=== PATIENT | female | born 1940 | race Caucasian/White ===

== ENCOUNTER → 2016-05-28 | Day surgery (SDC) | payer MEDICARE, BC ==
[~2016-05-28] MED LIST: AMBI10TA PO; ASCO500T PO; ASPI81TA11 PO; CHOL100025 CHEW; ESTR0.5T PO; ESTR0.5T8; ESTR42.5V VAGINAL; HYDR2.5O; HYZA50TA2 PO; IOHEXOL 180 MG/ML 20 ML VIAL (for RAD DIAG) EPIDURAL ONE; LIDOCAINE HCL 1% 30 ML VIAL NB ONE; MONT10TA4 PO; MULT-120 PO; OXYC1TAB36 PO; PRED1SUS EACH EYE; PROPOFOL 200 MG/20 ML AMP IV ONE; TRAV0.00 EACH EYE; TRIAMCINOLONE ACETONIDE 40 MG/ML VIAL NB ONE; TUMERIC PO; VENL75TA PO; VESI10TA PO; WOMETAB5 PO; ZOLP10TA3
--- NOTE | 2016-05-28 10:14 | M6 ---
cc: JIMBO NEELY M.D. DATE: 05/28/2016 DATE OF : 1940 PROCEDURE Fluoroscopic guided bilateral L5 selective nerve root injection. PROCEDURE NOTE History and physical was completed and signed. Consent was signed. Procedure site was marked. Medications were listed and reconciled. Pain score was recorded. Allergies were noted. Timeout was taken. Fluoroscopy time was recorded where applicable. Sedation was administered or directed by Dr. Neely. The patient was given oxygen. The patient was monitored by a registered nurse. Total procedure time was greater than 15 minutes. An IV was started, blood pressure cuff, pulse oximeter and EKG were applied. The patient was placed in the prone position on a Ezra table, sedated with small amounts of propofol titrated to effect. Vital signs were monitored and remained stable throughout the procedure. The lumbar area was prepped with alcohol and 10% Betadine solution, draped with sterile drapes. Fluoroscopy was used in both the AP and lateral projection to clearly visualize the L5-S1 neural foramen. Then 3-1/2 inch, 22-gauge Chiba needles were advanced into the dorsal aspect of each foramen. There was negative aspiration for blood or any other type of fluid. There was no washout to injection of Omnipaque dye. At each location the patient was given 3 mL of 1% Xylocaine, 3 mL of Omnipaque and 40 mg of Kenalog. Following the procedure the patient was taken to the recovery room with stable vital signs, neurologically intact. She will be evaluated immediately and with follow-up to determine if she has a subjective decrease in her usual pain and a corresponding objective increase in her functional capabilities. W. Cole Neely MD WRMiguelito/SUSAN /9:50 AM /10:10 AM
== END | disposition home or self-care (01) ==
LOC: PHSDC 07:54
PROVIDERS: ATTEND Pain Medicine Interventional Pain Medicine
DX: M54.5 Low back pain (principal); M79.605 Pain in left leg; M79.604 Pain in right leg
CPT/HCPCS: 64483; 99152; J3301; Q9965

== ENCOUNTER → 2016-08-15 | Day surgery (SDC) | payer MEDICARE, BC ==
[~2016-08-15] MED LIST changes: -ASCO500T PO; -ESTR42.5V VAGINAL; -LIDOCAINE HCL 1% 30 ML VIAL NB ONE; +LIDOCAINE HCL PF 2% VIAL ONE; -OXYC1TAB36 PO; -TUMERIC PO; -ZOLP10TA3
--- NOTE | 2016-08-19 22:45 | M6 ---
cc: STEVE BHATT,ANDRÉS ARROYO M.D., M.D. DATE 08/15/2016 1940 PROCEDURE Right S2 selective nerve root block PREPROCEDURE NOTE On 08/05/2014, I received a phone call from Dr. Steve Bhatt requesting a right S2 selective nerve root block on Ms. Wu in an attempt to identify her pain generator. History and physical was completed and signed. Consent was signed. Procedure site was marked. Medications were listed and reconciled. Pain score was recorded. Allergies were noted. Time out was taken. Fluoroscopy time was recorded where applicable. Sedation was administered or directed by Dr. Neely. The patient was given oxygen. The patient was monitored by a registered nurse. Total procedure time was greater than 15 minutes. IV was started, blood pressure cuff, pulse oximeter and EKG were applied. The patient was placed in the prone position on a Ezra table sedated with small amounts of propofol titrated to effect. Vital signs were monitored and remained stable throughout the procedure. Fluoroscopy was used to visualize the right S2 foramen; then a 3-1/2-inch 22-gauge Chiba needle was advanced under fluoroscopic guidance into the right S2 neural foramen. One mL of Omnipaque was injected and seen to outline the nerve root very clearly. Then the patient was given 1 mL of 2% Xylocaine and 20 mg of Kenalog directly on that nerve root. Following this, the patient was taken to the recovery room with stable vital signs. We will evaluate the patient immediately today and we will follow up with her in 24 hours. W. MD AVRIL Justice/ /8:50 AM /10:41 PM
== END | disposition home or self-care (01) ==
LOC: PHSDC 07:25
PROVIDERS: ATTEND Pain Medicine Interventional Pain Medicine
DX: M79.604 Pain in right leg (principal)
CPT/HCPCS: 64483; 99152; J3301; Q9965

== ENCOUNTER → 2016-09-25 | Day surgery (SDC) | payer MEDICARE, BC ==
[~2016-09-25] MED LIST changes: -ESTR0.5T8; -HYDR2.5O; +LIDOCAINE HCL PF 2% VIAL NERV BLOCK ONE; -LIDOCAINE HCL PF 2% VIAL ONE; -TRIAMCINOLONE ACETONIDE 40 MG/ML VIAL NB ONE; +TRIAMCINOLONE ACETONIDE 40 MG/ML VIAL NERV BLOCK ONE
--- NOTE | 2016-09-25 22:45 | M6 ---
cc: STEVE AGUILAR DEANNA K. MD MAYFIELD, WILLIAM R. M.D. Corrected Copy: 09/26/16 DATE: 09/25/2016 : 1940 PROCEDURE Fluoroscopically guided right S2 selective nerve root injection PRE-PROCEDURE NOTE On 08/15/2016, I performed a fluoroscopically guided right S2 selective nerve root injection of local anesthetic and steroid on Ms. Wu and she comes today to report that she had excellent relief of her symptoms and she still is having only mild pain so we are simply repeating the procedure today hoping for prolonged relief. History and physical was completed and signed. Consent was signed. Procedure site was marked. Medications were listed and reconciled. Pain score was recorded. Allergies were noted. Time out was taken. Fluoroscopy time was recorded where applicable. Sedation was administered or directed by Dr. Neely. The patient was given oxygen. The patient was monitored by a registered nurse. Total procedure time was greater than 15 minutes. IV was started, blood pressure cuff, pulse oximeter and EKG were applied. The patient was placed in the prone position on a Ezra table sedated with small amounts of propofol titrated to effect. Vital signs were monitored and remained stable throughout the procedure. he sacral area was prepped with alcohol and 10% Betadine solution, draped with sterile drapes. Fluoroscopy was used to visualize the right S2 neural foramen. Then a 3-1/2-inch 22-gauge Chiba needle was advanced into the foramen under fluoroscopic guidance. There was negative aspiration for blood or any other type of fluid. Omnipaque dye was injected and seen to outline the nerve root. The patient was given 1-1/2 mL of 2% Xylocaine 40 mg of Kenalog directly on the nerve. Following this, the patient was taken to the recovery room with stable vital signs. W. MD AVRIL Justice/ /9:34 AM /8:42 AM
== END | disposition home or self-care (01) ==
LOC: PHSDC 07:57
PROVIDERS: ATTEND Pain Medicine Interventional Pain Medicine
DX: M79.661 Pain in right lower leg (principal)
CPT/HCPCS: 64483; 99152; J3301; Q9965

== ENCOUNTER → 2016-10-22 | Day surgery (SDC) | payer MEDICARE, BC ==
[~2016-10-22] MED LIST changes: -IOHEXOL 180 MG/ML 20 ML VIAL (for RAD DIAG) EPIDURAL ONE; +LIDOCAINE HCL 1% 30 ML VIAL NERV BLOCK ONE; -LIDOCAINE HCL PF 2% VIAL NERV BLOCK ONE; -MULT-120 PO
--- NOTE | 2016-10-22 12:28 | M6 ---
cc: JIMBO NEELY M.D. DATE 10/22/2016 DATE OF 1940 PROCEDURE Fluoroscopically guided right S2 transforaminal epidural steroid injection. History and physical was completed and signed. Consent was signed. Procedure site was marked. Medications were listed and reconciled. Pain score was recorded. Allergies were noted. Time out was taken. Fluoroscopy time was recorded where applicable. Sedation was administered or directed by Dr. Neely. The patient was given oxygen. The patient was monitored by a registered nurse. Total procedure time was greater than 15 minutes. PROCEDURE NOTE IV was started. Blood pressure cuff, pulse oximeter and EKG were applied. The patient was placed in the prone position on a Ezra table, sedated with small amounts of propofol titrated to effect. Vital signs were monitored and remained stable throughout the procedure. The lumbar and sacral area was prepped with alcohol and 10% Betadine solution and draped with sterile drapes. Fluoroscopy was used to visualize the right S2 neural foramen. A 3-1/2-inch, 22-gauge Chiba needle was advanced into the foramen under fluoroscopic guidance. There was negative aspiration for blood or any other type of fluid and the patient was given 4 mL of 1% Xylocaine, 3 mL of Omnipaque and 40 mg of Kenalog. Following this the patient was taken to the recovery room with stable vital signs, neurologically intact. W. MD AVRIL Justice/RYANNE /10:21 AM /12:27 PM
== END | disposition home or self-care (01) ==
LOC: PHSDC 09:17
PROVIDERS: ATTEND Pain Medicine Interventional Pain Medicine
DX: M79.604 Pain in right leg (principal); I10 Essential (primary) hypertension; I34.1 Nonrheumatic mitral (valve) prolapse; Z88.5 Allergy status to narcotic agent
CPT/HCPCS: 64483; 99152; J3301

== ENCOUNTER → 2016-10-29 | Day surgery (SDC) | payer MEDICARE, BC ==
[~2016-10-29] MED LIST changes: +ACETAMINOPHEN 1000 MG/100 ML VIAL IV ONE; +ACETAMINOPHEN/HYDROcodone 325 MG/5 MG TAB ONE; +BUPIVACAINE/EPINEPHRINE 0.5% PF 30 ML VIAL ONE; -ESTR0.5T PO; +ISOSULFAN BLUE 50 MG/5 ML VIAL SQ ONE; +LACTATED RINGER'S 1000 ML INJ 1,000 ML ONE; -LIDOCAINE HCL 1% 30 ML VIAL NERV BLOCK ONE; +LIDOCAINE HCL 1% PF 30 ML VIAL ONE; +MEPERIDINE HCL 25 MG/ML VIAL ONE; +MEPERIDINE HCL 50 MG/ML VIAL ONE; +MIDAZOLAM HCL 2 MG/2 ML VIAL ONE; +ONDANSETRON HCL 4 MG/2 ML VIAL IV PUSH ONE; -TRIAMCINOLONE ACETONIDE 40 MG/ML VIAL NERV BLOCK ONE; +VANCOMYCIN HCL 1000 MG VIAL ONE; +ceFAZolin INJ 1,000 MG VIAL ONE
--- NOTE | 2016-11-01 21:58 | MP ---
cc: ARLEEN TORRES MD, MICHAEL A. MD DATE OF SURGERY 10/29/16 PROCEDURE 1. Excision soft tissue abdominal masses x3 ((2 x 4, 3 x 3 and 7 x 8 cm). 2. Excision right axillary sentinel lymph node x1. 3. Right breast needle localized lumpectomy. PREOPERATIVE DIAGNOSIS 1. Soft tissue abdominal masses x3. 2. Invasive ductal carcinoma right breast. SURGEON Alyssa Garcia MD FIRE TRUCK DRIVER Kush Cason, MACK PROCEDURE IN DETAIL The patient was taken to the Department of Nuclear Medicine where she underwent injection of the breast with technetium 99 sulfur colloid. She also underwent needle localized procedure marking the area in question. She then returned to the Department of Nuclear Medicine where sentinel lymph node mapping was completed with lymphoscintigraphy. She then came to the operating room after having the areas on the abdomen marked by the undersigned and confirmed by the patient. She was placed on the operating table in the supine position. She underwent laryngeal mask anesthesia. The abdomen, right breast and axilla were all prepped and draped in the field. Time-out was taken confirming the correct patient, site and procedure to be performed. The DELINQUENCY COUNSELOR's presence was required for the entirety of the procedure and she was present from the beginning to the end. The DELINQUENCY COUNSELOR's presence was required for retraction, visualization and resection of important structures. Attention was turned to the abdominal masses first as these were benign. Three separate incisions were made in the left upper abdomen, left mid abdomen and right upper abdomen. Transverse incisions were made directly over the masses. The left upper abdomen was addressed first and a 2 x 4 cm lesion was removed. The mid abdomen then had a 3 x 3 cm lesion excised. This was accomplished with a combination of electrocautery and sharp dissection. The right upper lesion was a recurrent soft tissue mass and this was excised with a 7 x 8 cm mass completely excised. All three sites were reexamined and made hemostatic with electrocautery. All three sites were closed with interrupted 3-0 Vicryl suture. The right upper abdominal wound was closed in the skin with 5-0 PDS in a running subcuticular fashion to prevent bleeding. These were cleaned and Steri-Strips were applied. These were toweled off. Attention was then turned to the right axilla. An incision was made in the axillary fold. Dissection was carried down with the navigator probe to the site in the axilla where a single lymph node was excised. This was passed off the table. The axilla was reexamined and no further activity of above background was noted. Careful sweeping of the axilla revealed no evidence of clinically suspicious nodes by palpation. Attention was then turned to the right breast where a circumareolar incision was made midway between the needle insertion site and the nipple-areolar complex from the 1 o'clock to the 4 o'clock position in the breast. Dissection was carried out medially to the needle which was cut at the skin and brought into the wound. A very generous lumpectomy specimen was then obtained all the way down to the muscle wall. A generous lumpectomy was made as the patient had concerning findings on MRI with what was felt to be considerable disease. This was oriented with silk sutures and passed off the table. The specimen mammogram demonstrated the calcifications in question to be contained within the specimen. However, there were some calcifications tracking medially to the edge of the specimen margin. Given the patient's MRI findings concerning for fairly extensive disease in the breast extending deeply and superficially, an additional medial margin was taken that was closer to the skin and where the needle insertion site was located. This area was marked with a silk suture and passed off the table. At this point, absolute hemostasis was achieved in the lumpectomy cavity. When this had been completed, both the lumpectomy and axillary lymph node sites were closed with interrupted 3-0 Vicryl suture and 5-0 PDS in a running subcuticular fashion with the breast wound closed last. The remaining local anesthetic was injected into the lumpectomy site as well as some saline to provide a cosmetically acceptable result. These wounds were dressed with Steri-Strips. The patient was extubated and taken back to the recovery room in stable condition. She tolerated the procedure well. MD REJI Godoy/ /1:25 PM /9:42 PM [facility]
== END | disposition home or self-care (01) ==
LOC: ESDC 06:57
PROVIDERS: ATTEND Surgery Trauma Surgery
DX: D05.11 Intraductal carcinoma in situ of right breast (principal); D17.1 Benign lipomatous neoplasm of skin and subcutaneous tissue of trunk
CPT/HCPCS: 00400; 01610; 19125; 22900; 22901; 38525; 88304; 88307; J0131; J0690; J2175; J2250; J2405; J3010; J3370; J7120; 88305; Q9968

== ENCOUNTER → 2016-11-05 | Day surgery (SDC) | payer MEDICARE, BC ==
[~2016-11-05] MED LIST changes: -ACETAMINOPHEN 1000 MG/100 ML VIAL IV ONE; -ACETAMINOPHEN/HYDROcodone 325 MG/5 MG TAB ONE; -BUPIVACAINE/EPINEPHRINE 0.5% PF 30 ML VIAL ONE; -ISOSULFAN BLUE 50 MG/5 ML VIAL SQ ONE; +KETOROLAC TROMETHAMINE 30 MG/ML (IVP) VIAL IV PUSH ONE; -LACTATED RINGER'S 1000 ML INJ 1,000 ML ONE; +LIDOCAINE HCL 1% 30 ML VIAL INFIL ONE; -LIDOCAINE HCL 1% PF 30 ML VIAL ONE; +MEPERIDINE HCL 25 MG/ML VIAL IV ONE; -MEPERIDINE HCL 25 MG/ML VIAL ONE; -MEPERIDINE HCL 50 MG/ML VIAL ONE; -MIDAZOLAM HCL 2 MG/2 ML VIAL ONE; -ONDANSETRON HCL 4 MG/2 ML VIAL IV PUSH ONE; +SODIUM CHLORIDE 0.9% 10 ML VIAL ONE; -VANCOMYCIN HCL 1000 MG VIAL ONE; -ceFAZolin INJ 1,000 MG VIAL ONE; +methylPREDNISolone ACETATE 80 MG/ML VIAL ONE
--- NOTE | 2016-11-05 11:06 | M6 ---
cc: JIMBO NEELY M.D. DATE: 11/05/2016 1940 PROCEDURE Fluoroscopically guided L5-S1 translaminar epidural steroid injection. History and physical was completed and signed. Consent was signed. Procedure site was marked. Medications were listed and reconciled. Pain score was recorded. Allergies were noted. Time out was taken. Fluoroscopy time was recorded where applicable. Sedation was administered or directed by Dr. Neely. The patient was given oxygen. The patient was monitored by a registered nurse. Total procedure time was greater than 15 minutes. IV was started, blood pressure cuff, pulse oximeter and EKG were applied. The patient was placed in the prone position on a Ezra table, sedated with small amounts of propofol titrated to effect. Vital signs were monitored and remained stable throughout the procedure. The lumbar area was prepped with alcohol and 10% Betadine solution and draped with sterile drapes. Fluoroscopy was used to visualize the L5-S1 interlaminar space. The skin was infiltrated with 1% Xylocaine using a 27 gauge needle then a 3-1/2-inch 18-gauge Warren needle was advanced using fluoroscopic guidance and the [id number] technique into the epidural space at L5-S1 slightly to the right of the midline. There was negative aspiration for blood or any other type of fluid and the patient was given 10 mL of 0.5% lidocaine 80 mg of Depo-Medrol. Following the procedure the patient was taken to the recovery room with stable vital signs, neurologically intact. WMD AVRIL Caputo/KALPANA /10:31 AM /11:05 AM
== END | disposition home or self-care (01) ==
LOC: PHSDC 08:41
PROVIDERS: ATTEND Pain Medicine Interventional Pain Medicine
DX: M54.5 Low back pain (principal)
CPT/HCPCS: 62323; 99152; J1040; J1885; J2175

== ENCOUNTER → 2016-11-19 | Day surgery (SDC) | payer MEDICARE, BC ==
[~2016-11-19] MED LIST changes: +IOHEXOL 180 MG/ML 20 ML VIAL (for RAD DIAG) EPIDURAL ONE; -KETOROLAC TROMETHAMINE 30 MG/ML (IVP) VIAL IV PUSH ONE; -LIDOCAINE HCL 1% 30 ML VIAL INFIL ONE; +LIDOCAINE HCL 1% PF 30 ML VIAL INFIL ONE; -MEPERIDINE HCL 25 MG/ML VIAL IV ONE; +TRIAMCINOLONE ACETONIDE 40 MG/ML VIAL NERV BLOCK ONE; +methylPREDNISolone ACETATE 40 MG/ML VIAL IM ONE; -methylPREDNISolone ACETATE 80 MG/ML VIAL ONE
--- NOTE | 2016-11-21 21:50 | M6 ---
cc: JIMBO NEELY M.D. DATE 11/19/2016 DATE OF 1940 PROCEDURE Fluoroscopically guided injection right piriformis/sciatic nerve. History and physical was completed and signed. Consent was signed. Procedure site was marked. Medications were listed and reconciled. Pain score was recorded. Allergies were noted. Time out was taken. Fluoroscopy time was recorded where applicable. Sedation was administered or directed by Dr. Neely. The patient was given oxygen. The patient was monitored by a registered nurse. Total procedure time was greater than 15 minutes. IV was started, blood pressure cuff, pulse oximeter and EKG were applied. The patient was placed in the prone position on a Ezra table sedated with small amounts of propofol titrated to effect. Vital signs were monitored and remained stable throughout the procedure. The right hip area was prepped with alcohol and 10% Betadine solution and draped with sterile drapes. Fluoroscopy was used to visualize the right acetabulum. Then a 3 and a 1/2-inch 22-gauge spinal needle was advanced down to the dorsal cephalad one third of the acetabulum in the anatomical location of the piriformis muscle and sciatic nerve. Then a small amount of Omnipaque dye was injected and seen to spread laterally and medially in the piriformis muscle and the patient was given 10 mL of 0.5% Xylocaine, 40 milligrams of Depo-Medrol, 40 milligrams of Kenalog. Following the procedure the patient was taken to the recovery room with stable vital signs, neurologically intact. She will be evaluated immediately and with followup to determine if she has a subjective decrease in her usual pain and a corresponding objective increase in her functional capabilities. W. Cole Neely MD WRM/EO /9:21 AM /9:49 PM
== END | disposition home or self-care (01) ==
LOC: PHSDC 07:53
PROVIDERS: ATTEND Pain Medicine Interventional Pain Medicine
DX: M79.661 Pain in right lower leg (principal)
CPT/HCPCS: 64445; 99152; J1030; J3301; Q9965; 77003

== ENCOUNTER 2017-02-26 14:43 | Inpatient (IN) | payer MEDICARE, BC ==
[~2017-02-26] VITALS: Ht 162.6 cm; Wt 80.0 kg
[~2017-02-26 14:43] MED LIST changes: -IOHEXOL 180 MG/ML 20 ML VIAL (for RAD DIAG) EPIDURAL ONE; -LIDOCAINE HCL 1% PF 30 ML VIAL INFIL ONE; -PROPOFOL 200 MG/20 ML AMP IV ONE; -SODIUM CHLORIDE 0.9% 10 ML VIAL ONE; -TRIAMCINOLONE ACETONIDE 40 MG/ML VIAL NERV BLOCK ONE; -methylPREDNISolone ACETATE 40 MG/ML VIAL IM ONE
[2017-02-26] MEDS ORDERED: IOHEXOL 350 MG/ML 10 ML VIAL (for RAD DIAG) IVCONTRAST ONE (14:44)
[2017-02-26 14:46] VITALS: BP 142/65; PULSE 115; RESP 22; TEMP 98.1; O2SAT 93
[2017-02-26 15:34] LABS: HEMATOCRIT 42.4 % (35.0-46.0); MEAN CELL VOLUME 93.3 FL (80.0-100.0); MEAN CORPUSCULAR HEMOGLOBIN 32.2 PG (27.0-34.0); MEAN CORPUSCULAR HGB CONC 34.6 % (32.0-36.0); PLATELET COUNT 194 TH/MM3 (150-450); RED BLOOD COUNT 4.54 MIL/MM3 (4.00-5.30); WHITE BLOOD COUNT 5.5 TH/MM3 (4.0-11.0)
--- NOTE | 2017-02-26 15:35 | PD ---
HPI Chief Complaint: Respiratory Symptoms Time Seen by Provider: 15:34 Travel History International Travel<30 days: No Contact w/Intl Traveler<30days: No Traveled to known affect area: No History of Present Illness HPI 76-year-old female came to the emergency room with history of left-sided pleuritic chest pain that started 4 hours ago. Patient has history of breast cancer in the past and melanoma. She is on oral chemotherapy for her breast cancer. She recently had a travel of 3 and half hour one-way and then 3 and half hour back from [place]. She has been complaining of left ankle swelling although her oncologist did an MRI which was negative. She says she has been short of breath since the pain started and taking a deep breath is extremely painful. No radiation of the pain. Patient has never had this kind of pain in the past. No history of PE or DVT in the past. No history of coronary artery disease in the past. It is not a smoker. She was slightly tachycardic and hypoxic in the room as I was watching the monitor. [facility] Past Medical History Narrative Medical List of her past medical, surgical, social and family history is reviewed from the nursing note. Arthritis: Yes Asthma: No Blood Disorders: No Anxiety: Yes Depression: No Heart Rhythm Problems: No Cancer: Yes (SKIN) Cardiovascular Problems: Yes (MITRAL VALVE PROLAPSE) High Cholesterol: Yes Chemotherapy: No Chest Pain: No Congestive Heart Failure: No COPD: No Cerebrovascular Accident: No Diabetes: No Endocrine: No Gastrointestinal Disorders: Yes (DIVERTICULITIS) GERD: No Genitourinary: No Hepatitis: No Hiatal Hernia: No Hypertension: Yes Immune Disorder: No Implanted Vascular Access Dvce: Yes Kidney Stones: No Musculoskeletal: Yes (HX OF BACK/NECK PROBLEMS, TITANIUM PLATE IN NECK. FUSED LUMBAR SPINE) Neurologic: Yes (HX OF BELLS PALSY ) Psychiatric: Yes (ANXIETY) Reproductive: No Respiratory: Yes (HX PNEUMONIA APR 2014) Migraines: No Radiation Therapy: No Renal Failure: No Seizures: No Sleep Apnea: Yes (DOESN'T USE CPAP) Thyroid Disease: No Ulcer: No Past Surgical History Abdominal Surgery: Yes (TUMMY TUCK) AICD: No Arteriovenous Shunt: No Body Medical Devices: TITANIUM PLATE AND SCREWS IN NECK, L BREAST MARKER Ear Surgery: No Endocrine Surgery: No Eye Surgery: Yes (CATARACT BILATERAL, INFLAMMATION IN SYDNI EYES) Genitourinary Surgery: Yes (BLADDER SUSP.) Gynecologic Surgery: Yes (D&C) Insulin Pump: No Joint Replacement: No Neurologic Surgery: Yes (ANT. CERVICAL FUSION 2009, LUMBAR FUSION) Oral Surgery: No Pacemaker: No Thoracic Surgery: Yes (L BREAST LUMPECTOMY (BENIGN)) Social History Alcohol Use: Yes (WINE DAILY) Tobacco Use: No Substance Use: No Allergies-Medications (Allergen,Severity, Reaction): Coded Allergies: adhesive (Unverified Allergy, Severe, SKIN BREAK, 02/26/17) levofloxacin (Unverified Allergy, Severe, Itching, 02/26/17) morphine (Unverified Allergy, Severe, Nausea/Vomiting, 02/26/17) codeine (Unverified Adverse Reaction, Severe, NAUSEA, 02/26/17) Comments List of her allergies reviewed from the nursing note. Reported Meds & Prescriptions Reported Meds & Active Scripts Active Reported Systane Opth Drops (Polyethylene Glycol-Propylene Glycol Opth Drp) 0.4-0.3% Soln 1-2 Drop EACH EYE PRN PRN Arimidex (Anastrozole) 1 Mg Tab 1 Mg PO DAILY Myrbetriq (Mirabegron) 50 Mg Tab 50 Mg PO DAILY Aspirin EC (Aspirin) 81 Mg Tabdr 81 Mg PO DAILY Womens One Daily (Multiple Vitamins W/ Minerals) 1 Tab Tab 1 Tab PO DAILY Montelukast (Montelukast Sodium) 10 Mg Tab 10 Mg PO HS Ambien (Zolpidem Tartrate) 10 Mg Tab 10 Mg PO HS PRN Effexor (Venlafaxine HCl) 75 Mg Tab 75 Mg PO DAILY Travatan Z Opth Drops (Travoprost) 0.004 % Soln 1 Drop EACH EYE HS Pred Forte Opth 1% (Prednisolone Acetate Opth 1%) 1% Susp 1 Drop EACH EYE QID Hyzaar (Losartan-Hydrochlorothiazide) 50-12.5 Mg Tab 1 Tab PO DAILY Vitamin D3 (Cholecalciferol) 1,000 Unit Chew 1,000 Units CHEW DAILY Narrative Medication List of her home medications reviewed from the nursing note. Review of Systems Except as stated in HPI: all other systems reviewed are Neg Physical Exam Narrative GENERAL: Awake, alert, moderate distress SKIN: Focused skin assessment warm/dry. HEAD: Atraumatic. Normocephalic. EYES: Pupils equal and round. No scleral icterus. No injection or drainage. ENT: No nasal bleeding or discharge. Mucous membranes pink and moist. NECK: Trachea midline. No JVD. CARDIOVASCULAR: Regular rate and rhythm. No murmur appreciated. RESPIRATORY: No accessory muscle use. By basilar crackles left worse than right GASTROINTESTINAL: Abdomen soft, non-tender, nondistended. Hepatic and splenic margins not palpable. MUSCULOSKELETAL: No obvious deformities. No clubbing. No cyanosis. No edema. NEUROLOGICAL: Awake and alert. No obvious cranial nerve deficits. Motor grossly within normal limits. Normal speech. PSYCHIATRIC: Appropriate mood and affect; insight and judgment normal. Data Data Last Documented VS Vital Signs Date Time Temp Pulse Resp B/P (MAP) Pulse Ox O2 Delivery O2 Flow Rate FiO2 02/26/17 18:30 92 20 179/78 (111) 98 Nasal Cannula 2.00 02/26/17 14:46 98.1 Orders Orders Electrocardiogram (02/26/17 14:53) Complete Blood Count With Diff (02/26/17 14:53) Basic Metabolic Panel (Bmp) (02/26/17 14:53) Ckmb (Isoenzyme) Profile (02/26/17 14:53) Troponin I (02/26/17 14:53) Chest, Pa & Lat (02/26/17 14:53) Ct Pulmonary Angiogram (02/26/17 ) Ketorolac Inj (Toradol Inj) (02/26/17 15:45) Vascular Access Team Consult/P PRN (02/26/17 16:21) Vascular Poc Ultrasound (02/26/17 ) Iohexol 350 Inj (Omnipaque 350 Inj) (02/26/17 14:44) Ceftriaxone Inj (Rocephin Inj) (02/26/17 18:45) Azithromycin Inj (Zithromax Inj) (02/26/17 18:45) Sodium Chlor 0.9% 1000 Ml Inj (Ns 1000 M (02/26/17 18:45) Blood Culture (02/26/17 18:36) Lactic Acid (02/26/17 18:36) Fentanyl Inj (Fentanyl Inj) (02/26/17 19:00) Admit Order (Ed Use Only) (02/26/17 19:12) Labs Laboratory Tests Test 02/26/17 15:04 02/26/17 18:40 White Blood Count 5.5 TH/MM3 Red Blood Count 4.54 MIL/MM3 Hemoglobin 14.7 GM/DL Hematocrit 42.4 % Mean Corpuscular Volume 93.3 FL Mean Corpuscular Hemoglobin 32.2 PG Mean Corpuscular Hemoglobin Concent 34.6 % Red Cell Distribution Width 13.0 % Platelet Count 194 TH/MM3 Mean Platelet Volume 7.6 FL CBC Comment AUTO DIFF Differential Total Cells Counted 100 Neutrophils % (Manual) 76 % Band Neutrophils % 22 % Lymphocytes % 1 % Monocytes % 1 % Neutrophils # (Manual) 5.4 TH/MM3 Differential Comment FINAL DIFF MANUAL Platelet Estimate NORMAL Platelet Morphology Comment NORMAL Blood Urea Nitrogen 18 MG/DL Creatinine 0.84 MG/DL Random Glucose 106 MG/DL Calcium Level 9.2 MG/DL Sodium Level 139 MEQ/L Potassium Level 3.4 MEQ/L Chloride Level 104 MEQ/L Carbon Dioxide Level 28.4 MEQ/L Anion Gap 7 MEQ/L Estimat Glomerular Filtration Rate 66 ML/MIN Total Creatine Kinase 86 U/L Troponin I LESS THAN 0.02 NG/ML Lactic Acid Level 2.6 mmol/L [facility] Medical Decision Making Medical Screen Exam Complete: Yes Emergency Medical Condition: Yes Medical Record Reviewed: Yes Interpretation(s) Twelve-lead EKG was reviewed by me. Normal sinus rhythm, left axis deviation, tachycardia, nonspecific ST-T wave changes. Heart rate of 108 bpm. Differential Diagnosis PE, ACS, non-STEMI, pneumonia Narrative Course 5:32 PM blood test results are back and patient has some bandemia. Awaiting for pulmonary angiogram to be done and resulted. Patient was given IV Toradol for pain relief. [address] scan shows pneumonia. Patient will be admitted. She says her pain was coming back and I have ordered some fentanyl. Procedures EKG Prior to Arrival: No Sepsis Criteria SIRS Criteria (2 or more): Heart rate over 90, WBC > 29698, < 4000 or > 10% bands Sepsis Criteria (SIRS+source): Infect source susp/known Diagnosis Primary Impression: SIRS (systemic inflammatory response syndrome) Additional Impressions: Pneumonia Qualified Codes: J18.1 - Lobar pneumonia, unspecified organism Hypoxia Admitting Information Admitting Physician Requests: Admit Kenia Yepez MD Feb 26, 2017 15:35
[2017-02-26] MEDS ORDERED: KETOROLAC TROMETHAMINE 30 MG/ML (IVP) VIAL IV PUSH ONE (15:45)
--- NOTE | 2017-02-26 15:45 | RADRPT ---
EXAM DATE/TIME: 02/26/2017 15:17 [place] COMPARISON: No previous studies available for comparison. INDICATIONS : Chest pain and shortness of breath. MEDICAL HISTORY : Carcinoma, breast. SURGICAL HISTORY : Breast surgery. ENCOUNTER: Initial ACUITY: 1 day PAIN SCORE: 9/10 LOCATION: Left chest FINDINGS: PA and lateral views of the chest demonstrate the lungs to be symmetrically aerated without evidence of mass, infiltrate or effusion. The cardiomediastinal contours are unremarkable. Osseous structure s are intact. CONCLUSION: No acute disease. Jagdeep Amaral MD on February 26, 2017 at 15:39 Board Certified Radiologist. This report was verified electronically.
[2017-02-26 15:47] LABS: HEMO FLAGS AUTO DIFF
[2017-02-26 15:55] LABS: ANION GAP 7 MEQ/L (5-15); BICARBONATE 28.4 MEQ/L (21.0-32.0); BLOOD UREA NITROGEN 18 MG/DL (7-18); CHLORIDE 104 MEQ/L (98-107); GLOMERULAR FILTRATION RATE 66 ML/MIN (>89); POTASSIUM 3.4 MEQ/L (3.5-5.1); SODIUM (NA) 139 MEQ/L (136-145)
[2017-02-26 16:06] LABS: CREATINE KINASE 86 U/L (26-192)
[2017-02-26 17:13] LABS: BANDS 22 % (0-6); NEUTROPHIL # MANUAL DIFF 5.4 TH/MM3 (1.8-7.7); PLATELET ESTIMATE SMEAR NORMAL (NORMAL); PLATELET MORPHOLOGY NORMAL (NORMAL); POLYS (SEG NEUTROPHILS) 76 % (16-70); SCAN/DIFF FINAL DIFF MANUAL; WBC DIFF SAMPLE 100
--- NOTE | 2017-02-26 18:27 | RADRPT ---
EXAM DATE/TIME: 02/26/2017 17:56 [place] COMPARISON: CT SIMULATION, November 27, 2016, 10:14. INDICATIONS : Left-sided chest pain, shortness of breath, nausea and vomiting. IV CONTRAST: 84 cc Omnipaque 350 (iohexol) IV RADIATION DOSE: 23.29 CTDIvol (mGy) MEDICAL HISTORY : Cardiovascular disease. Carcinoma, breast. Hypertension. SURGICAL HISTORY : Appendectomy. Right lumpectomy. ENCOUNTER: Initial ACUITY: 1 day PAIN SCALE: 5/10 LOCATION: Left chest TECHNIQUE: Volumetric scanning of the chest was performed using a pulmonary embolism protocol MIP images were re constructed. Using automated exposure control and adjustment of the mA and/or kV according to patien t size, radiation dose was kept as low as reasonably achievable to obtain optimal diagnostic quality images. DICOM format image data is available electronically for review and comparison. Follow-up recommendations for detected pulmonary nodules are based at a minimum on nodule size and pa tient risk factors according to Fleischner Society Guidelines. FINDINGS: PULMONARY ARTERIES: No filling defects are seen in the pulmonary arteries through the segmental level. LUNGS: A small focus of airspace disease in the lateral left lung base. PLEURAE: There is no pleural thickening or pleural effusion. MEDIASTINUM: There is mild prominence of bilateral hilar christiane tissue and small central mediastinal lymph nodes ar e visualized. This appears to be a change from prior CT simulation study of November. Small hiatal hernia MUSCULOSKELETAL: Within normal limits for patient age. MISCELLANEOUS: The visualized upper abdominal organs demonstrate no acute abnormality. Left lobe liver cyst. Presume d postoperative changes in the low right paramedian chest and fluid density collection in the medial left breast, unchanged. CONCLUSION: No evidence of pulmonary embolism. Interval development of mild prominence of mediastinal and bilateral aspen are christiane tissue. Small infiltrate at the lateral left lung base. Eric Dinh MD on February 26, 2017 at 18:18 Board Certified Radiologist. This report was verified electronically.
[2017-02-26 18:30] VITALS: BP 179/78; PULSE 92; RESP 20; O2SAT 98
[2017-02-26] MEDS ORDERED: cefTRIAXone INJ 1,000 MG in SODIUM CHLORIDE 0.9% INJ 100 ML IV ONE (18:45)
[2017-02-26] MEDS ORDERED: AZITHROMYCIN INJ 500 MG in SODIUM CHLOR 0.9% 250 ML INJ 250 ML IV ONE (18:45)
[2017-02-26] MEDS ORDERED: SODIUM CHLOR 0.9% 1000 ML INJ 1,000 ML IV ONE (18:45)
[2017-02-26] MEDS ORDERED: MIRA50TA PO (18:52)
[2017-02-26] MEDS ORDERED: SYSTSOL EACH EYE (18:52)
[2017-02-26] MEDS ORDERED: ANAS1 PO (18:52)
[2017-02-26] MEDS ORDERED: SODIUM CHLORIDE 0.9% FLUSH 10 ML FLUSH IV FLUSH PRN (20:00)
[2017-02-26] MEDS ORDERED: POTASSIUM CHLORIDE 20 MEQ CONTROLLED RELEASE TAB PO ONE (20:00)
[2017-02-26] MEDS ORDERED: NALOXONE HCL 0.4 MG/ML AMP IV PUSH PRN (20:00)
[2017-02-26] MEDS: SODIUM CHLORIDE 0.9% FLUSH 10 ML FLUSH IV FLUSH SCH (21:00)
[2017-02-26 21:45] VITALS: BP 129/80; PULSE 85; RESP 18; TEMP 99.5; O2SAT 98
--- NOTE | 2017-02-26 23:26 | HHI.HP ---
[facility] [place] [facility] Alisha Guzman MD Admission Diagnosis pneumonia, pleuritic chest pain, SIRS with source Diagnoses: (1) Chest pain (2) Pneumonia Chief Complaint: chest pain, shortness of breath Travel History International Travel<30 Days: No Contact w/Intl Traveler <30 Da: No Traveled to Known Affected Are: No History of Present Illness Written by Farzana Chase, acting as scribe for Dr. Montgomery on 02/26/17 at 23:26. The patient has right breast cancer s/p lumpectomy diagnosed September 2016 February 07 was the last radiation. She takes Arimidex chemotherapy daily. The patient had a facial done this morning and was feeling fine. Afterwards, she returned home. The patient reports nausea this afternoon followed by shortness of breath and stabbing pains in her chest. Pain did not radiate and was associated with no diaphoresis, no vomiting. Denies diarrhea. The pain is still present. Denies cough, sputum production, or fever. Patient reports she's been having left ankle edema for about a month and had a negative doppler study as an outpatient that was ordered by her oncologist Dr. Mccormick. Review of Systems Except as stated in HPI: all other systems reviewed are Neg Past Family Social History Past Medical History Hypertension MVP Right breast CA diagnosed in September 2016 Diverticulitis with colon rupture Melanoma right leg Denies diabetes mellitus, CAD, CHF, atrial fibrillation, asthma, COPD, emphysema , liver problems, kidney problems, DVT, PE, CVA, seizures, or thyroid disorders Past Surgical History Right breast lumpectomy Melanoma on leg surgically excised many years ago Colon resection Lumbar fusion Titanium plate in neck . Reported Medications Reported Meds & Active Scripts Active Reported Systane Opth Drops (Polyethylene Glycol-Propylene Glycol Opth Drp) 0.4-0.3% Soln 1-2 Drop EACH EYE PRN PRN Arimidex (Anastrozole) 1 Mg Tab 1 Mg PO DAILY Myrbetriq (Mirabegron) 50 Mg Tab 50 Mg PO DAILY Aspirin EC (Aspirin) 81 Mg Tabdr 81 Mg PO DAILY Womens One Daily (Multiple Vitamins W/ Minerals) 1 Tab Tab 1 Tab PO DAILY Montelukast (Montelukast Sodium) 10 Mg Tab 10 Mg PO HS Ambien (Zolpidem Tartrate) 10 Mg Tab 10 Mg PO HS PRN Effexor (Venlafaxine HCl) 75 Mg Tab 75 Mg PO DAILY Travatan Z Opth Drops (Travoprost) 0.004 % Soln 1 Drop EACH EYE HS Pred Forte Opth 1% (Prednisolone Acetate Opth 1%) 1% Susp 1 Drop EACH EYE QID Hyzaar (Losartan-Hydrochlorothiazide) 50-12.5 Mg Tab 1 Tab PO DAILY Vitamin D3 (Cholecalciferol) 1,000 Unit Chew 1,000 Units CHEW DAILY . Allergies: Coded Allergies: adhesive (Unverified Allergy, Severe, SKIN BREAK, 02/26/17) levofloxacin (Unverified Allergy, Severe, Itching, 02/26/17) morphine (Unverified Allergy, Severe, Nausea/Vomiting, 02/26/17) codeine (Unverified Adverse Reaction, Severe, NAUSEA, 02/26/17) Active Ordered Medications Current Medications Ketorolac Tromethamine (Toradol Inj) 30 mg ONCE ONCE IV PUSH Last administered on 02/26/17 17:14; Start 02/26/17 at 15:45; Stop 02/26/17 at 15:46 ; Status DC Iohexol (Omnipaque 350 Inj) 84 ml STK-MED ONCE IVCONTRAST Last administered on 02/26/17 14:44; Start 02/26/17 at 14:44; Stop 02/26/17 at 18:13; Status DC Ceftriaxone Sodium 1000 mg/ Sodium Chloride 100 ml @ 200 mls/hr ONCE ONCE IV Last administered on 02/26/17 18:45; Start 02/26/17 at 18:45; Stop 02/26/17 at 19:14; Status DC Azithromycin 500 mg/Sodium Chloride 250 ml @ 250 mls/hr ONCE ONCE IV ; Start 02/26/17 at 18:45; Stop 02/26/17 at 19:44; Status DC Sodium Chloride 1,000 ml @ 999 mls/hr BOLUS ONCE IV Last administered on 02/26 18:45; Start 02/26/17 at 18:45; Stop 02/26/17 at 19:45; Status DC Fentanyl Citrate (fentaNYL INJ) 25 mcg ONCE ONCE IV PUSH ; Start 02/26/17 at 19 :00; Stop 02/26/17 at 19:01; Status DC Sodium Chloride (NS Flush) 2 ml UNSCH PRN IV FLUSH FLUSH AFTER USING IV ACCESS ; Start 02/26/17 at 20:00 Sodium Chloride (NS Flush) 2 ml BID IV FLUSH Last administered on 02/26/17t 21: 00; Start 02/26/17 at 21:00 Naloxone HCl (Narcan Inj) 0.4 mg UNSCH PRN IV PUSH SEE LABEL COMMENTS; Start 02/26/17 at 20:00 Cefepime HCl 2000 mg/Sodium Chloride 100 ml @ 200 mls/hr Q12H IV ; Start at 00:00 Potassium Chloride (KCl) 40 meq ONCE ONCE PO Last administered on 02/26/17 22 :01; Start 02/26/17 at 20:00; Stop 02/26/17 at 20:01; Status DC Hydromorphone HCl (Dilaudid Pf Inj) 0.5 mg Q4H PRN IV PUSH pain >5; Start 02/26 at 23:00 Anastrozole (Arimidex) 1 mg DAILY PO ; Start 02/27/17 at 09:00 Aspirin (Ecotrin Ec) 81 mg DAILY PO ; Start 02/27/17 at 09:00 Montelukast Sodium (Singulair) 10 mg HS PO ; Start 02/27/17 at 21:00 Prednisolone Acetate (Pred Forte 1% Opth Susp) 1 drop QID EACH EYE ; Start 02/27 at 09:00 Zolpidem Tartrate (Ambien) 10 mg HS PRN PO INSOMNIA; Start 02/26/17 at 23:00 Losartan Potassium (Cozaar) 50 mg DAILY PO ; Start 02/27/17 at 09:00 Patient Own Medication PT OWN MED: (Mirabeg... DAILY PO ; Start 02/27/17 at 09: 00; Status Future Hold Latanoprost (Xalatan 0.005% Opth Soln) 1 drop HS EACH EYE ; Start 02/27/17 at 21 :00 Venlafaxine HCl (Effexor Xr) 75 mg DAILY PO ; Start 02/27/17 at 09:00 Hydrochlorothiazide (Microzide) 12.5 mg DAILY PO ; Start 02/27/17 at 09:00 . Family History Father with melanoma Mother with ?COPD? on oxygen . Social History Tobacco: denies ever smoking alcohol: denies Illicit drugs: denies . Physical Exam Vital Signs Vital Signs Date Time Temp Pulse Resp B/P (MAP) Pulse Ox O2 Delivery O2 Flow Rate FiO2 02/26/17 21:45 99.5 85 18 129/80 (96) 98 02/26/17 21:20 02/26/17 18:30 92 20 179/78 (111) 98 Nasal Cannula 2.00 02/26/17 15:39 102 18 90 Room Air 02/26/17 14:46 98.1 115 22 142/65 (90) 93 Physical Exam GENERAL: This is a elderly female patient, in no apparent distress. SKIN: No rashes, ecchymoses or lesions. Cool and dry. HEAD: Atraumatic. Normocephalic. EYES: No scleral icterus. No injection or drainage. ENT: Nose without bleeding, purulent drainage or septal hematoma. Airway patent. NECK: Trachea midline. No JVD. CARDIOVASCULAR: Regular rate and rhythm without murmurs, gallops, or rubs. Left ankle edema 1+. RESPIRATORY: Clear to auscultation. Breath sounds equal bilaterally. No wheezes , rales, or rhonchi. GASTROINTESTINAL: Abdomen soft, non-tender, nondistended. No guarding. MUSCULOSKELETAL: Extremities without clubbing, cyanosis. No calf tenderness. NEUROLOGICAL: Awake and alert. Motor and sensory grossly within normal limits. Normal speech. . Laboratory Laboratory Tests Test 02/26/17 15:04 02/26/17 18:40 White Blood Count 5.5 Red Blood Count 4.54 Hemoglobin 14.7 Hematocrit 42.4 Mean Corpuscular Volume 93.3 Mean Corpuscular Hemoglobin 32.2 Mean Corpuscular Hemoglobin Concent 34.6 Red Cell Distribution Width 13.0 Platelet Count 194 Mean Platelet Volume 7.6 CBC Comment AUTO DIFF Differential Total Cells Counted 100 Neutrophils % (Manual) 76 Band Neutrophils % 22 Lymphocytes % 1 Monocytes % 1 Neutrophils # (Manual) 5.4 Differential Comment FINAL DIFF MANUAL Platelet Estimate NORMAL Platelet Morphology Comment NORMAL Blood Urea Nitrogen 18 Creatinine 0.84 Random Glucose 106 Calcium Level 9.2 Sodium Level 139 Potassium Level 3.4 Chloride Level 104 Carbon Dioxide Level 28.4 Anion Gap 7 Estimat Glomerular Filtration Rate 66 Total Creatine Kinase 86 Troponin I LESS THAN 0.02 Lactic Acid Level 2.6 Date/Time Source Procedure Growth Status 02/26/17 18:40 Blood Peripheral Aerobic Blood Culture Pending Received 02/26/17 18:40 Blood Peripheral Anaerobic Blood Culture Pending Received Result Diagram: 02/26/17 1504 02/26/17 1504 Imaging Last Impressions Chest X-Ray 02/26/17 1453 Signed Impressions: Service Date/Time: February 15:17 - CONCLUSION: No acute disease. Jagdeep Amaral MD CT Angiography 02/26/17 0000 Signed Impressions: Service Date/Time: February 17:56 - CONCLUSION: No evidence of pulmonary embolism. Interval development of mild prominence of mediastinal and bilateral aspen are christiane tissue. Small infiltrate at the lateral left lung base. Eric Dinh MD . Caprini VTE Risk Assessment Caprini VTE Risk Assessment: Mod/High Risk (score >= 2) Caprini Risk Assessment Model Point Value = 1 Point Value = 2 Point Value = 3 Point Value = 5 Age 41-60 Minor surgery BMI > 25 kg/m2 Swollen legs Varicose veins or History of unexplained or recurrent spontaneous Oral contraceptives or hormone replacement Sepsis (< 1 month) Serious lung disease, including pneumonia (< 1 month) Abnormal pulmonary function Acute myocardial infarction Congestive heart failure (< 1 month) History of inflammatory bowel disease Medical patient at bed rest Age 61-74 Arthroscopic surgery Major open surgery (> 45 min) Laparoscopic surgery (> 45 min) Malignancy Confined to bed (> 72 hours) Immobilizing plaster cast Central venous access Age >= 75 History of VTE Family history of VTE Factor V Leiden Prothrombin [id number] Lupus anticoagulant Anticardiolipin antibodies Elevated serum homocysteine Heparin-induced thrombocytopenia Other congenital or acquired thrombophilia Stroke (< 1 month) Elective arthroplasty Hip, pelvis, or leg fracture Acute spinal cord injury (< 1 month) Prophylaxis Regimen Total Risk Factor Score Risk Level Prophylaxis Regimen 0-1 Low Early ambulation 2 Moderate Order ONE of the following: *Sequential Compression Device (SCD) *Heparin 5000 units SQ BID 3-4 Higher Order ONE of the following medications: *Heparin 5000 units SQ TID *Enoxaparin/Lovenox 40 mg SQ daily (WT < 150 kg, CrCl > 30 mL/min) *Enoxaparin/Lovenox 30 mg SQ daily (WT < 150 kg, CrCl > 10-29 mL/min) *Enoxaparin/Lovenox 30 mg SQ BID (WT < 150 kg, CrCl > 30 mL/min) AND/OR *Sequential Compression Device (SCD) 5 or more Highest Order ONE of the following medications: *Heparin 5000 units SQ TID (Preferred with Epidurals) *Enoxaparin/Lovenox 40 mg SQ daily (WT < 150 kg, CrCl > 30 mL/min) *Enoxaparin/Lovenox 30 mg SQ daily (WT < 150 kg, CrCl > 10-29 mL/min) *Enoxaparin/Lovenox 30 mg SQ BID (WT < 150 kg, CrCl > 30 mL/min) AND *Sequential Compression Device (SCD) Assessment and Plan Problem List: (1) Pneumonia ICD Code: J18.9 - Pneumonia Status: Acute (2) Chest pain ICD Code: R07.9 - Chest pain Status: Acute (3) Hypokalemia ICD Code: E87.6 - Hypokalemia (4) Breast CA ICD Code: C50.919 - Malignant neoplasm of unspecified site of unspecified female breast Status: Chronic Assessment and Plan 76 y/o female with right breast CA who presented to the ER with chest pain and shortness of breath on 02/26/17: Pneumonia - CT Angiogram negative for PE but showed interval development of mild prominence of mediastinal and bilateral hilar christiane tissue. Small infiltrate at the lateral left lung base. - CBC with bandemia, Lactic Acid 2.6 - Cefepime 2 grams IV q12h - supplemental oxygen titrated to maintain oxygen saturation > 92 % Atypical chest pain - CT Angiogram negative for PE - continuous cardiac telemetry to monitor heart rate and for arrhythmias - Dilaudid 0.5 mg IV q3h prn pain - allergic to morphine; pruritis from Dilaudid; will add Benadryl to be given with Dilaudid - check echocardiogram with chest pain and left ankle swelling - had outpatient doppler u/s neg for DVT per pt as ordered by Dr. Mccormick Right breast CA - s/p lumpectomy and radiation - taking Arimidex chemotherapy daily - follows with Dr. Mccormick Hypokalemia, mild - initial K+ 3.4 - K+ replaced, monitor levels and replace as needed DVT prophylaxis - Lovenox 40 mg subq q24h . This note was transcribed by [email or web address] [Farzana Chase]. I, Dr. Vivek Montgomery personally performed the history, physical exam, and medical decision making; and confirmed the accuracy of the information in the transcribed note. Authenticated by Dr. Vivek Montgomery on 02/26/17 at 23:26. Discussed Condition With ER physician and patient . Physician Certification 2 Midnight Certification Type: Admission for Inpatient Services Order for Inpatient Services The services are ordered in accordance with Medicare regulations or non- Medicare payer requirements, as applicable. In the case of services not specified as inpatient-only, they are appropriately provided as inpatient services in accordance with the 2-midnight benchmark. Estimated LOS (days): 3 days is the estimated time the patient will need to remain in the hospital, assuming treatment plan goals are met and no additional complications. Post-Hospital Plan: Home Problem Qualifiers (1) Pneumonia: Qualified Codes: J18.1 - Lobar pneumonia, unspecified organism Farzana Chase Feb 26, 2017 23:26 Vivek Montgomery MD Mar 17, 2017 17:48
[2017-02-27] MEDS: HYDROmorphone HCL PF 1 MG/ML VIAL IV PUSH PRN ×2 (00:01→23:12)
[2017-02-27] MEDS: diphenhydrAMINE HCL 50 MG/ML VIAL IV PUSH PRN ×2 (00:02→23:18)
[2017-02-27 00:21] VITALS: BP 123/70; PULSE 85; RESP 18; TEMP 98.6; O2SAT 98
[2017-02-27] MEDS: ZOLPIDEM TARTRATE 10 MG TAB PO PRN ×2 (00:56→23:12)
[2017-02-27] MEDS: CEFEPIME INJ 2,000 MG in SODIUM CHLORIDE 0.9% INJ 100 ML IV SCH ×3 (00:57→23:12)
[2017-02-27 05:31] LABS: AUTOMATED NEUTROPHIL # 8.9 TH/MM3 (1.8-7.7); BASOPHIL % 0.3 % (0.0-2.0); EOSINOPHIL # 0.1 TH/MM3 (0-0.4); EOSINOPHIL % 1.2 % (0.0-4.0); HEMATOCRIT 38.7 % (35.0-46.0); HEMO FLAGS DIFF FINAL; LYMPH % 4.3 % (9.0-44.0); LYMPHOCYTE # 0.4 TH/MM3 (1.0-4.8); MEAN CELL VOLUME 94.3 FL (80.0-100.0); MEAN CORPUSCULAR HEMOGLOBIN 32.7 PG (27.0-34.0); MEAN CORPUSCULAR HGB CONC 34.7 % (32.0-36.0); MONO % 7.6 % (0.0-8.0); NEUT % 86.6 % (16.0-70.0); PLATELET COUNT 218 TH/MM3 (150-450); RED CELL DISTRIBUTION WIDTH 13.6 % (11.6-17.2); WHITE BLOOD COUNT 10.2 TH/MM3 (4.0-11.0)
[2017-02-27 05:54] LABS: BICARBONATE 26.2 MEQ/L (21.0-32.0); POTASSIUM 3.9 MEQ/L (3.5-5.1)
[2017-02-27 08:00] VITALS: BP 144/76; PULSE 81; RESP 17; TEMP 96.3; O2SAT 95
[2017-02-27] MEDS: prednisoLONE ACETATE 1% OPHT SUSP 5 ML BTL EACH EYE SCH ×4 (08:46→21:04)
[2017-02-27] MEDS: ANASTROZOLE 1 MG TAB PO SCH (08:47)
[2017-02-27] MEDS: VENLAFAXINE HCL XR 75 MG CAP PO SCH (08:47)
[2017-02-27] MEDS: ASPIRIN EC 81 MG TABEC PO SCH (08:48)
[2017-02-27] MEDS: LOSARTAN 50 MG TAB PO SCH (08:48)
[2017-02-27] MEDS: HYDROCHLOROTHIAZIDE 12.5 MG CAP PO SCH (08:48)
[2017-02-27] MEDS: SODIUM CHLORIDE 0.9% FLUSH 10 ML FLUSH IV FLUSH SCH ×2 (08:49→21:00)
[2017-02-27] MEDS ORDERED: MIRABEGRON 50 MG PO SCH (09:00)
[2017-02-27 12:00] VITALS: BP 131/74; PULSE 84; RESP 17; TEMP 98; O2SAT 96
--- NOTE | 2017-02-27 12:13 | HHI.PR ---
Subjective Remarks With chest pain when taking a deep breath. Fever and chills last night. Not much cough, however feels her chest is congested. No n/v/d/c. Wants regular diet. No n/v/d/c. Objective Vitals Vital Signs Date Time Temp Pulse Resp B/P (MAP) Pulse Ox O2 Delivery O2 Flow Rate FiO2 02/27/17 08:00 96.3 81 17 144/76 (98) 95 02/27/17 00:31 18 02/27/17 00:21 98.6 85 18 123/70 (87) 98 02/26/17 21:45 99.5 85 18 129/80 (96) 98 02/26/17 21:20 02/26/17 18:30 92 20 179/78 (111) 98 Nasal Cannula 2.00 02/26/17 15:39 102 18 90 Room Air 02/26/17 14:46 98.1 115 22 142/65 (90) 93 I/O 02/26/17 02/26/17 02/26/17 02/27/17 02/27/17 02/27/17 07:00 15:00 23:00 07:00 15:00 23:00 Intake Total 1100 ml 480 ml Balance 1100 ml 480 ml Intake Oral 480 ml IV Total 1100 ml # Voids 3 Result Diagram: 02/27/17 0509 02/27/17 0509 Imaging Last Impressions Chest X-Ray 02/26/17 1453 Signed Impressions: Service Date/Time: February 15:17 - CONCLUSION: No acute disease. Jagdeep Amaral MD CT Angiography 02/26/17 0000 Signed Impressions: Service Date/Time: February 17:56 - CONCLUSION: No evidence of pulmonary embolism. Interval development of mild prominence of mediastinal and bilateral aspen are christiane tissue. Small infiltrate at the lateral left lung base. Eric Dinh MD Objective Remarks GENERAL: This is a elderly female patient, in no apparent distress. CARDIOVASCULAR: Regular rate and rhythm without murmurs, gallops, or rubs. Left ankle edema 1+. RESPIRATORY: Bibasilar decreased breath sounds, bronchial sounds. Scattered wheezing. No rales. GASTROINTESTINAL: Abdomen soft, non-tender, nondistended. No guarding. MUSCULOSKELETAL: Extremities without clubbing, cyanosis. No calf tenderness. NEUROLOGICAL: Awake and alert. Motor and sensory grossly within normal limits. Normal speech. A/P Problem List: (1) Pneumonia ICD Code: J18.9 - Pneumonia Status: Acute (2) Chest pain ICD Code: R07.9 - Chest pain Status: Acute (3) Hypokalemia ICD Code: E87.6 - Hypokalemia (4) Breast CA ICD Code: C50.919 - Malignant neoplasm of unspecified site of unspecified female breast Status: Chronic Assessment and Plan 76 y/o female with right breast CA who presented to the ER with chest pain and shortness of breath on 02/26/17: Pneumonia - CT Angiogram negative for PE but showed interval development of mild prominence of mediastinal and bilateral hilar christiane tissue. Small infiltrate at the lateral left lung base. - CBC with bandemia, Lactic Acid 2.6 - Cefepime 2 grams IV q12h - supplemental oxygen titrated to maintain oxygen saturation > 92 % - Add nebs scheduled and as need as patient with sob and mild wheezing on exam Atypical chest pain - CT Angiogram negative for PE - continuous cardiac telemetry to monitor heart rate and for arrhythmias - Dilaudid 0.5 mg IV q3h prn pain - allergic to morphine; pruritis from Dilaudid; will add Benadryl to be given with Dilaudid - check echocardiogram with chest pain and left ankle swelling - had outpatient doppler u/s neg for DVT per pt as ordered by Dr. Mccormick Right breast CA - s/p lumpectomy and radiation - taking Arimidex chemotherapy daily - follows with Dr. Mccormick Hypokalemia, mild - initial K+ 3.4 - K+ replaced, monitor levels and replace as needed DVT prophylaxis - Lovenox 40 mg subq q24h Asking for regular diet, will change diet to regular Discussed Condition With patient, nurse, family at bedside Problem Qualifiers (1) Pneumonia: Qualified Codes: J18.1 - Lobar pneumonia, unspecified organism Francesca Seals MD Feb 27, 2017 12:13
[2017-02-27] MEDS ORDERED: RESP: ALBUTEROL 2.5 MG/IPRATROPIUM 0.5 MG NEB (PRN) NEB (13:00)
[2017-02-27] MEDS ORDERED: RESP: ALBUTEROL 2.5 MG/IPRATROPIUM 0.5 MG NEB (SCH) NEB ONE (13:00)
--- NOTE | 2017-02-27 13:09 | EKG ---
Date Performed: 02/26/2017 Time Performed: 14:57:33 PTAGE: 76 years EKG: SINUS TACHYCARDIA INCOMPLETE RIGHT BUNDLE BRANCH BLOCK INFERIOR MYOCARDIAL INFARCTION ABNOR MAL ECG PREVIOUS TRACING : 09/25/2014 00.59 Compared to prior tracing no significant change DOCTOR: Aaron Antonio Interpretating Date/Time 02/27/2017 13:08:27
[2017-02-27] MEDS: RESP: ALBUTEROL 2.5 MG/IPRATROPIUM 0.5 MG NEB (SCH) NEB ×2 (14:00→21:53)
[2017-02-27 16:00] VITALS: BP 142/66; PULSE 90; RESP 17; TEMP 97.4; O2SAT 98
--- NOTE | 2017-02-27 17:08 | ECHRPT ---
Indication: SOB CONCLUSIONS Normal left ventricular size. Wall thickness is normal. The left ventricular systolic function is low normal with an estimated ejection fraction in the rang e of 50- 55%. There is trace tricuspid valve regurgitation. There is estimated mild pulmonary hypertension present ( 41 mmHg). BP: 144 / 76 HR: 81 Rhythm: Sinus MEASUREMENTS (Male / Female) Normal Values Technical Quality:Good 2D ECHO LV Diastolic Diameter PLAX 4.3 cm 4.2 - 5.9 / 3.9 - 5.3 cm LV Systolic Diameter PLAX 3.3 cm IVS Diastolic Thickness 1.4 cm 0.6 - 1.0 / 0.6 - 0.9 cm LVPW Diastolic Thickness 0.8 cm 0.6 - 1.0 / 0.6 - 0.9 cm LV Relative Wall Thickness 0.5 RV Internal Dim ED PLAX 2.0 cm LA Systolic Diameter LX 3.4 cm 3.0 - 4.0 / 2.7 - 3.8 cm M-MODE Aortic Root Diameter MM 2.8 cm AV Cusp Separation MM 1.8 cm DOPPLER MR Peak Velocity 391.0 cm/s MR Peak Gradient 61.2 mmHg Mitral E Point Velocity 95.6 cm/s Mitral A Point Velocity 108.0 cm/s Mitral E to A Ratio 0.9 TR Peak Velocity 280.0 cm/s TR Peak Gradient 31.4 mmHg Right Atrial Pressure 10.0 mmHg Pulmonary Artery Systolic Pressu 41.4 mmHg Right Ventricular Systolic Press 41.4 mmHg FINDINGS LEFT VENTRICLE Normal left ventricular size. Wall thickness is normal. The left ventricular systolic function is low normal with an estimated ejection fraction in the rang e of 50- 55%. RIGHT VENTRICLE Normal right ventricular size and systolic function. LEFT ATRIUM The left atrial size is normal. RIGHT ATRIUM The right atrial size is normal. ATRIAL SEPTUM Thickened atrial septum is noted with morphological features most consistent with a lipomatous atria l septum. AORTA The aortic root and proximal ascending aorta are normal in size on limited imaging. MITRAL VALVE Structurally normal mitral valve. No mitral valve stenosis or regurgitation. AORTIC VALVE Trileaflet aortic valve. No aortic valve stenosis or regurgitation. TRICUSPID VALVE There is trace tricuspid valve regurgitation. There is estimated mild pulmonary hypertension present ( 41 mmHg). PULMONARY VALVE No pulmonary valve regurgitation or stenosis. VESSELS The inferior vena cava is normal in size. PERICARDIUM No pericardial effusion. Sam Walton MD (Electronically Signed) Final Date:27 February 2017 17:07
[2017-02-27 20:06] VITALS: BP 142/76; PULSE 85; RESP 17; TEMP 98.8; O2SAT 98
[2017-02-27] MEDS: MONTELUKAST SODIUM 10 MG TAB PO SCH (20:59)
[2017-02-27] MEDS: LATANOPROST 0.005% OPHT SOLN 2.5 ML BTL EACH EYE SCH (21:00)
[2017-02-28] VITALS (10 sets, daily range): BP systolic 122–194; BP diastolic 68–88; PULSE 76–91; RESP 16–20; TEMP 95.8–97.7; O2SAT 94–98
[2017-02-28 07:32] LABS: AUTOMATED NEUTROPHIL # 3.8 TH/MM3 (1.8-7.7); BASOPHIL % 0.2 % (0.0-2.0); EOSINOPHIL # 0.2 TH/MM3 (0-0.4); EOSINOPHIL % 4.2 % (0.0-4.0); HEMATOCRIT 37.7 % (35.0-46.0); HEMO FLAGS DIFF FINAL; LYMPH % 13.4 % (9.0-44.0); LYMPHOCYTE # 0.7 TH/MM3 (1.0-4.8); MEAN CELL VOLUME 93.1 FL (80.0-100.0); MEAN CORPUSCULAR HEMOGLOBIN 31.9 PG (27.0-34.0); MEAN CORPUSCULAR HGB CONC 34.3 % (32.0-36.0); MONO % 9.4 % (0.0-8.0); NEUT % 72.8 % (16.0-70.0); PLATELET COUNT 190 TH/MM3 (150-450); RED BLOOD COUNT 4.05 MIL/MM3 (4.00-5.30); RED CELL DISTRIBUTION WIDTH 13.4 % (11.6-17.2); WHITE BLOOD COUNT 5.2 TH/MM3 (4.0-11.0)
[2017-02-28 08:14] LABS: POTASSIUM 3.5 MEQ/L (3.5-5.1)
[2017-02-28] MEDS: prednisoLONE ACETATE 1% OPHT SUSP 5 ML BTL EACH EYE SCH ×4 (08:35→20:17)
[2017-02-28] MEDS: LOSARTAN 50 MG TAB PO SCH (08:36)
[2017-02-28] MEDS: HYDROCHLOROTHIAZIDE 12.5 MG CAP PO SCH (08:36)
[2017-02-28] MEDS: SODIUM CHLORIDE 0.9% FLUSH 10 ML FLUSH IV FLUSH SCH ×2 (08:36→20:15)
[2017-02-28] MEDS: ASPIRIN EC 81 MG TABEC PO SCH (08:36)
[2017-02-28] MEDS: ANASTROZOLE 1 MG TAB PO SCH (08:36)
[2017-02-28] MEDS: VENLAFAXINE HCL XR 75 MG CAP PO SCH (08:36)
[2017-02-28] MEDS: RESP: ALBUTEROL 2.5 MG/IPRATROPIUM 0.5 MG NEB (SCH) NEB ×3 (10:00→19:30)
--- NOTE | 2017-02-28 12:01 | HHI.PR ---
Subjective Remarks In bed, appears tired. Patient says she doesn't feel improved today. Says she is still with sob and chest pain with deep inspiration. feels chest is congested. No much cough. No fever or chills. No n/v/d/c. Objective Vitals Vital Signs Date Time Temp Pulse Resp B/P (MAP) Pulse Ox O2 Delivery O2 Flow Rate FiO2 02/28/17 08:00 97.4 82 16 132/74 (93) 96 02/28/17 04:16 97.3 80 18 128/74 (92) 98 02/28/17 02:28 76 02/28/17 00:39 97.4 80 18 148/70 (96) 94 02/27/17 20:06 98.8 85 17 142/76 (98) 98 02/27/17 16:00 97.4 90 17 142/66 (91) 98 I/O 02/27/17 02/27/17 02/27/17 02/28/17 02/28/17 02/28/17 07:00 15:00 23:00 07:00 15:00 23:00 Intake Total 480 ml 960 ml 860 ml Balance 480 ml 960 ml 860 ml Intake Oral 480 ml 960 ml 760 ml IV Total 100 ml # Voids 3 3 4 # Bowel Movements 1 2 Result Diagram: 02/28/17 0639 02/28/17 0639 Imaging Last Impressions Chest X-Ray 02/26/17 1453 Signed Impressions: Service Date/Time: February 15:17 - CONCLUSION: No acute disease. Jagdeep Amaral MD CT Angiography 02/26/17 0000 Signed Impressions: Service Date/Time: February 17:56 - CONCLUSION: No evidence of pulmonary embolism. Interval development of mild prominence of mediastinal and bilateral aspen are christiane tissue. Small infiltrate at the lateral left lung base. Eric Dinh MD Objective Remarks GENERAL: This is a elderly female patient, in no apparent distress. CARDIOVASCULAR: Regular rate and rhythm without murmurs, gallops, or rubs. Left ankle edema 1+. RESPIRATORY: Bibasilar decreased breath sounds, bronchial sounds. No wheezing. No rales. GASTROINTESTINAL: Abdomen soft, non-tender, nondistended. No guarding. MUSCULOSKELETAL: Extremities without clubbing, cyanosis. No calf tenderness. NEUROLOGICAL: Awake and alert. Motor and sensory grossly within normal limits. Normal speech. A/P Problem List: (1) Pneumonia ICD Code: J18.9 - Pneumonia Status: Acute (2) Chest pain ICD Code: R07.9 - Chest pain Status: Acute (3) Hypokalemia ICD Code: E87.6 - Hypokalemia (4) Breast CA ICD Code: C50.919 - Malignant neoplasm of unspecified site of unspecified female breast Status: Chronic Assessment and Plan 76 y/o female with right breast CA who presented to the ER with chest pain and shortness of breath on 02/26/17: Pneumonia - CT Angiogram negative for PE but showed interval development of mild prominence of mediastinal and bilateral hilar christiane tissue. Small infiltrate at the lateral left lung base. - CBC with bandemia, Lactic Acid 2.6 - Cefepime 2 grams IV q12h - supplemental oxygen titrated to maintain oxygen saturation > 92 % - Blood cultures NTD - Sputum cx if obtainable - Cont nebs scheduled and as need as patient with sob and mild wheezing on exam - Add IS, accapella, mucinex Atypical chest pain - CT Angiogram negative for PE - continuous cardiac telemetry to monitor heart rate and for arrhythmias - Dilaudid 0.5 mg IV q3h prn pain - allergic to morphine; pruritis from Dilaudid; will add Benadryl to be given with Dilaudid - check echocardiogram with chest pain and left ankle swelling - had outpatient doppler u/s neg for DVT per pt as ordered by Dr. Mccormick -2D ECHO rev EF 55%. BNP is normal Right breast CA - s/p lumpectomy and radiation - taking Arimidex chemotherapy daily - follows with Dr. Mccormick Hypokalemia, mild - initial K+ 3.4 - K+ replaced, monitor levels and replace as needed DVT prophylaxis - Lovenox 40 mg subq q24h Asking for regular diet, will change diet to regular Discussed Condition With patient, nurse, family at bedside DC plan: DC when Improved poss tomorrow Problem Qualifiers (1) Pneumonia: Qualified Codes: J18.1 - Lobar pneumonia, unspecified organism Francesca Seals MD Feb 28, 2017 12:01
[2017-02-28] MEDS: CEFEPIME INJ 2,000 MG in SODIUM CHLORIDE 0.9% INJ 100 ML IV SCH ×2 (12:05→22:56)
[2017-02-28] MEDS: guaiFENesin E.R. 600 MG TAB PO SCH ×2 (16:50→20:15)
[2017-02-28] MEDS: LATANOPROST 0.005% OPHT SOLN 2.5 ML BTL EACH EYE SCH (20:15)
[2017-02-28] MEDS: MONTELUKAST SODIUM 10 MG TAB PO SCH (20:15)
[2017-02-28] MEDS: diphenhydrAMINE HCL 50 MG/ML VIAL IV PUSH PRN (20:26)
[2017-02-28] MEDS: HYDROmorphone HCL PF 1 MG/ML VIAL IV PUSH PRN (20:27)
[2017-02-28] MEDS: ZOLPIDEM TARTRATE 10 MG TAB PO PRN (22:57)
[2017-02-28] MEDS ORDERED: cloNIDine HCL 0.1 MG TAB PO ONE (23:30)
[2017-03-01] VITALS: BP 126/59; PULSE 80; RESP 16; TEMP 96.9; O2SAT 95
[2017-03-01 04:57] VITALS: BP 153/69; PULSE 80; RESP 16; TEMP 96.7; O2SAT 95
[2017-03-01 08:00] VITALS: BP 158/76; PULSE 78; RESP 16; TEMP 96.1; O2SAT 95
[2017-03-01] MEDS: ANASTROZOLE 1 MG TAB PO SCH (08:33)
[2017-03-01] MEDS: guaiFENesin E.R. 600 MG TAB PO SCH (08:33)
[2017-03-01] MEDS: VENLAFAXINE HCL XR 75 MG CAP PO SCH (08:33)
[2017-03-01] MEDS: LOSARTAN 50 MG TAB PO SCH (08:33)
[2017-03-01] MEDS: ASPIRIN EC 81 MG TABEC PO SCH (08:33)
[2017-03-01] MEDS: SODIUM CHLORIDE 0.9% FLUSH 10 ML FLUSH IV FLUSH SCH (08:34)
[2017-03-01] MEDS: HYDROCHLOROTHIAZIDE 12.5 MG CAP PO SCH (08:34)
[2017-03-01] MEDS: prednisoLONE ACETATE 1% OPHT SUSP 5 ML BTL EACH EYE SCH ×2 (08:34→13:00)
[2017-03-01] MEDS: RESP: ALBUTEROL 2.5 MG/IPRATROPIUM 0.5 MG NEB (SCH) NEB ×2 (09:18→11:22)
[2017-03-01] MEDS: CEFEPIME INJ 2,000 MG in SODIUM CHLORIDE 0.9% INJ 100 ML IV SCH (11:20)
[2017-03-01 12:00] VITALS: BP 140/64; PULSE 91; RESP 18; TEMP 97.9; O2SAT 94
--- NOTE | 2017-03-01 13:50 | HHI.PR ---
Subjective Remarks Follow-up Community-acquired pneumonia/atypical chest pain 03/01/17-patient seen and examined, currently afebrile and denies any chest pain or shortness of breath. Looking for discharge home today Objective Vitals Vital Signs Date Time Temp Pulse Resp B/P (MAP) Pulse Ox O2 Delivery O2 Flow Rate FiO2 03/01/17 12:00 97.9 91 18 140/64 (89) 94 03/01/17 08:00 96.1 78 16 158/76 (103) 95 03/01/17 04:57 96.7 80 16 153/69 (97) 95 03/01/17 00:00 96.9 80 16 126/59 (81) 95 02/28/17 23:06 95.8 86 20 174/79 (110) 94 02/28/17 20:33 178/72 (107) 02/28/17 20:00 96.4 91 16 194/88 (123) 96 02/28/17 20:00 83 02/28/17 16:00 95.8 88 18 154/78 (103) 95 I/O 02/28/17 02/28/17 02/28/17 03/01/17 03/01/17 03/01/17 07:00 15:00 23:00 07:00 15:00 23:00 Intake Total 860 ml 1640 ml 100 ml Balance 860 ml 1640 ml 100 ml Intake Oral 760 ml 1640 ml IV Total 100 ml 100 ml # Voids 4 4 3 # Bowel Movements 2 1 Result Diagram: 02/28/17 0639 02/28/17 0639 Imaging Last Impressions Chest X-Ray 02/26/17 1453 Signed Impressions: Service Date/Time: February 15:17 - CONCLUSION: No acute disease. Jagdeep Amaral MD CT Angiography 02/26/17 0000 Signed Impressions: Service Date/Time: February 17:56 - CONCLUSION: No evidence of pulmonary embolism. Interval development of mild prominence of mediastinal and bilateral aspen are christiane tissue. Small infiltrate at the lateral left lung base. Eric Dinh MD Objective Remarks GENERAL: NAD SKIN: Warm and dry. HEAD: Normocephalic. EYES: No scleral icterus. No injection or drainage. NECK: Supple, trachea midline. No JVD or lymphadenopathy. CARDIOVASCULAR: Regular rate and rhythm without murmurs, gallops, or rubs. RESPIRATORY: Breath sounds equal bilaterally. No accessory muscle use. GASTROINTESTINAL: Abdomen soft, non-tender, nondistended. MUSCULOSKELETAL: No cyanosis, or edema. BACK: Nontender without obvious deformity. No CVA tenderness. Procedures none A/P Problem List: (1) Pneumonia ICD Code: J18.9 - Pneumonia Status: Acute (2) Chest pain ICD Code: R07.9 - Chest pain Status: Acute (3) Hypokalemia ICD Code: E87.6 - Hypokalemia (4) Breast CA ICD Code: C50.919 - Malignant neoplasm of unspecified site of unspecified female breast Status: Chronic Assessment and Plan 76 year old female with Community-acquired Pneumonia - CT Angiogram negative for PE but showed interval development of mild prominence of mediastinal and bilateral hilar christiane tissue. Small infiltrate at the lateral left lung base. - Improving on Cefepime 2 grams IV q12h, DuoNeb, Mucinex - supplemental oxygen titrated to maintain oxygen saturation > 92 % - Blood cultures NTD Atypical chest pain - CT Angiogram negative for PE - Dilaudid 0.5 mg IV q3h prn pain -had outpatient doppler u/s neg for DVT per pt as ordered by Dr. Mccormick -2D ECHO rev EF 55%. BNP is normal Right breast CA - s/p lumpectomy and radiation - taking Arimidex chemotherapy daily - follows with Dr. Mccormick Hypokalemia, mild -Resolved DVT prophylaxis - Lovenox 40 mg subq q24h Problem Qualifiers (1) Pneumonia: Qualified Codes: J18.1 - Lobar pneumonia, unspecified organism Ayaan Varela MD Mar 01, 2017 13:50
[2017-03-01] MEDS ORDERED: AZIT250T3 PO (13:51)
--- NOTE | 2017-03-01 13:55 | HHI.DS ---
Discharge Summary Admission Date Feb 26, 2017 at 19:14 Discharge Date: Mar 01, 2017 Admitting Diagnosis pneumonia, pleuritic chest pain, SIRS with source (1) Pneumonia ICD Code: J18.9 - Pneumonia Status: Acute (2) Chest pain ICD Code: R07.9 - Chest pain Status: Acute (3) Hypokalemia ICD Code: E87.6 - Hypokalemia (4) Breast CA ICD Code: C50.919 - Malignant neoplasm of unspecified site of unspecified female breast Status: Chronic Procedures none Brief History - From Admission Written by Farzana Chase, acting as scribe for Dr. Montgomery on 02/26/17 at 23:26. The patient has right breast cancer s/p lumpectomy diagnosed September 2016 February 07 was the last radiation. She takes Arimidex chemotherapy daily. The patient had a facial done this morning and was feeling fine. Afterwards, she returned home. The patient reports nausea this afternoon followed by shortness of breath and stabbing pains in her chest. Pain did not radiate and was associated with no diaphoresis, no vomiting. Denies diarrhea. The pain is still present. Denies cough, sputum production, or fever. Patient reports she's been having left ankle edema for about a month and had a negative doppler study as an outpatient that was ordered by her oncologist Dr. Mccormick. CBC/BMP: 02/28/17 0639 02/28/17 0639 Significant Findings Laboratory Tests Test 02/26/17 15:04 02/26/17 18:40 02/27/17 05:09 02/27/17 14:05 Neutrophils % (Manual) 76 % (16-70) Band Neutrophils % 22 % (0-6) Lymphocytes % 1 % (9-44) Potassium Level 3.4 MEQ/L (3.5-5.1) Estimat Glomerular Filtration Rate 66 ML/MIN (>89) 76 ML/MIN (>89) Troponin I LESS THAN 0.02 NG/ML Lactic Acid Level 2.6 mmol/L (0.4-2.0) Neutrophils (%) (Auto) 86.6 % (16.0-70.0) Lymphocytes (%) (Auto) 4.3 % (9.0-44.0) Neutrophils # (Auto) 8.9 TH/MM3 (1.8-7.7) Lymphocytes # (Auto) 0.4 TH/MM3 (1.0-4.8) Test 02/28/17 06:39 Neutrophils (%) (Auto) 72.8 % (16.0-70.0) Monocytes (%) (Auto) 9.4 % (0.0-8.0) Eosinophils (%) (Auto) 4.2 % (0.0-4.0) Lymphocytes # (Auto) 0.7 TH/MM3 (1.0-4.8) Random Glucose 107 MG/DL (74-106) Estimat Glomerular Filtration Rate 86 ML/MIN (>89) Imaging Last Impressions Chest X-Ray 02/26/17 1453 Signed Impressions: Service Date/Time: February 15:17 - CONCLUSION: No acute disease. Jagdeep Amaral MD CT Angiography 02/26/17 0000 Signed Impressions: Service Date/Time: , February 26, 2017 17:56 - CONCLUSION: No evidence of pulmonary embolism. Interval development of mild prominence of mediastinal and bilateral aspen are christiane tissue. Small infiltrate at the lateral left lung base. Eric Dinh MD PE at Discharge GENERAL: NAD SKIN: Warm and dry. HEAD: Normocephalic. EYES: No scleral icterus. No injection or drainage. NECK: Supple, trachea midline. No JVD or lymphadenopathy. CARDIOVASCULAR: Regular rate and rhythm without murmurs, gallops, or rubs. RESPIRATORY: Breath sounds equal bilaterally. No accessory muscle use. GASTROINTESTINAL: Abdomen soft, non-tender, nondistended. MUSCULOSKELETAL: No cyanosis, or edema. BACK: Nontender without obvious deformity. No CVA tenderness. Hospital Course Patient admitted secondary to community-acquired pneumonia for which she was started on IV antibiotic including cefepime. ACS was ruled out per protocol with serial cardiac enzyme and EKGs. PE was also ruled out with negative CTA. Patient had a normal 2-D echo. All electrolyte abnormalities including hypokalemia were replaced accordingly. She was continued on a treatment for other chronic medical conditions. DVT and GI prophylaxis were provided. Prior to discharge, patient's condition improved and vitals remained stable. She'll be discharged home on azithromycin 250 mg by mouth daily 3 days. Pt Condition on Discharge: Stable Discharge Disposition: Discharge Home Discharge Time: <= 30 minutes Discharge Instructions DIET: Follow Instructions for: Heart Healthy Diet Activities you can perform: Regular-No Restrictions Follow up Referrals: PCP Follow-up - 1 Week New Medications: Azithromycin (Azithromycin) 250 Mg Tab 250 MG PO DAILY for Infection, #3 TAB 0 Refills Continued Medications: Anastrozole (Arimidex) 1 Mg Tab 1 MG PO DAILY for Breast Cancer, #30 TAB [address] (Aspirin EC) 81 Mg Tabdr 81 MG PO DAILY, TAB 0 Refills Cholecalciferol (Vitamin D3) 1,000 Unit Chew 1000 UNITS CHEW DAILY for Nutritional Supplement, #1 BOTTLE 0 Refills Losartan-Hydrochlorothiazide (Hyzaar) 50-12.5 Mg Tab 1 TAB PO DAILY for Blood Pressure Management, #30 TAB 0 Refills Mirabegron (Myrbetriq) 50 Mg Tab 50 MG PO DAILY for Urinary Symptom Managemen, #30 TAB 0 Refills Montelukast (Montelukast) 10 Mg Tab 10 MG PO HS for Asthma Management, #30 TAB 0 Refills Multiple Vitamins W/ Minerals (Womens One Daily) 1 Tab Tab 1 TAB PO DAILY Polyethylene Glycol-Propylene Glycol Opth Drp (Systane Opth Drops) 0.4-0.3% Soln 1-2 DROP EACH EYE PRN PRN for DRY EYE, #1 BOTTLE 0 Refills Prednisolone Acetate Opth 1% (Pred Forte Opth 1%) 1% Susp 1 DROP EACH EYE QID for Inflammation, #1 BOTTLE 0 Refills Travoprost Opth Drops (Travatan Z Opth Drops) 0.004 % Soln 1 DROP EACH EYE HS for Glaucoma, #1 BOTTLE 0 Refills Venlafaxine (Effexor) 75 Mg Tab 75 MG PO DAILY for Pain Management, #30 TAB 0 Refills Zolpidem (Ambien) 10 Mg Tab 10 MG PO HS PRN for INSOMNIA, TAB 0 Refills Ayaan Varela MD Mar 01, 2017 13:55
== END 2017-03-01 15:41 | disposition home or self-care (01) | DRG 195 ==
LOC: NEPC 14:43 → NEDA 19:14 → N07A 21:13
PROVIDERS: ADMIT Hospitalist; ATTEND Hospitalist
DX: J18.9 Pneumonia, unspecified organism (principal); C50.911 Malignant neoplasm of unspecified site of right female breast; I34.1 Nonrheumatic mitral (valve) prolapse; I10 Essential (primary) hypertension; E87.6 Hypokalemia; R09.02 Hypoxemia; R00.0 Tachycardia, unspecified; M19.90 Unspecified osteoarthritis, unspecified site; F41.9 Anxiety disorder, unspecified; Z79.811 Long term (current) use of aromatase inhibitors; Z88.5 Allergy status to narcotic agent; Z85.820 Personal history of malignant melanoma of skin; Z98.1 Arthrodesis status; Z88.1 Allergy status to other antibiotic agents
CPT/HCPCS: 71020; 71275; 76937; 80048; 82550; 83605; 83880; 84484; 85007; 85025; 85027; 87040; 93005; 93306; 94150; 94640; 94664; 94667; 94668; 96365; 96375; J0456; J0692; J0696; J1170; J1200; J1885; J7030; J7050; Q9967

== ENCOUNTER 2017-05-04 14:42 | Inpatient (IN) | payer MEDICARE, BC ==
[2017-05-04] VITALS (12 sets, daily range): BP systolic 156–208; BP diastolic 68–102; PULSE 72–88; RESP 12–19; TEMP 97.8–98.4; O2SAT 97–100
[~2017-05-04] VITALS: Ht 162.6 cm; Wt 87.9 kg
[~2017-05-04 14:42] MED LIST changes: +ANAS1 PO; -ASPI81TA11 PO; +ASPI81TA23 PO; +AZIT250T3 PO; +MIRA50TA PO; +SYSTSOL EACH EYE; -VESI10TA PO
[2017-05-04] MEDS ORDERED: IODIXANOL 320 MG/ML 10 ML VIAL (for Rad CT) IVCONTRAST ONE (15:13)
[2017-05-04] MEDS ORDERED: niCARdipine INJ 25 MG in SODIUM CHLOR 0.9% 250 ML INJ 240 ML IV ONE (15:15)
--- NOTE | 2017-05-04 15:16 | PD ---
HPI Chief Complaint: Neuro Symptoms/ Deficits Time Seen by Provider: 14:55 Travel History International Travel<30 days: No Contact w/Intl Traveler<30days: No Traveled to known affect area: No History of Present Illness HPI 76yo F with PMH of breast cancer s/p lumpectomy 10/2016 here with slurred speech while waiting at Dr. Garcia's office today. Pt also with left arm and leg numbness as well as left facial droop on exam. NIH stroke scale of 4. Pt last normal at 12:50pm when her dropped her off at the clinic. Denies any fever, chest pain, sob, n/v, abdominal pain, focal weakness. PFSH Past Medical History Arthritis: Yes Asthma: No Blood Disorders: No Anxiety: Yes Depression: No Heart Rhythm Problems: No Cancer: Yes Cardiovascular Problems: Yes (mitrovalve prolaps) High Cholesterol: Yes Chemotherapy: Yes (currently on chemo pill) Chest Pain: No Congestive Heart Failure: No COPD: No Cerebrovascular Accident: No Diabetes: No Endocrine: No Gastrointestinal Disorders: Yes (DIVERTICULITIS X 4, ) GERD: No Genitourinary: No Hepatitis: No Hiatal Hernia: No Hypertension: Yes Immune Disorder: No Implanted Vascular Access Dvce: Yes Kidney Stones: No Medical other: Yes (HX OF MALARIA X 3 (RAISED IN PANAMA)) Musculoskeletal: Yes (HX OF BACK/NECK PROBLEMS, TITANIUM PLATE IN NECK. FUSED LUMBAR SPINE) Neurologic: No Psychiatric: Yes (ANXIETY) Reproductive: No Respiratory: Yes Migraines: No Radiation Therapy: Yes Renal Failure: No Seizures: No Sleep Apnea: Yes (DOESN'T USE CPAP) Thyroid Disease: No Ulcer: No Past Surgical History Abdominal Surgery: Yes (TUMMY TUCK, COLON RESECTION) AICD: No Arteriovenous Shunt: No Body Medical Devices: TITANIUM PLATE AND SCREWS IN NECK, L BREAST MARKER Ear Surgery: No Endocrine Surgery: No Eye Surgery: Yes (CATARACT BILATERAL, INFLAMMATION IN SYDNI EYES) Genitourinary Surgery: Yes (BLADDER SUSP.) Gynecologic Surgery: Yes (D&C) Insulin Pump: No Joint Replacement: No Neurologic Surgery: Yes (ANT. CERVICAL FUSION 2009, LUMBAR FUSION) Oral Surgery: No Pacemaker: No Thoracic Surgery: Yes (L BREAST LUMPECTOMY (BENIGN)) Social History Alcohol Use: Yes (WINE DAILY) Tobacco Use: No Substance Use: Yes (1 cup) Allergies-Medications (Allergen,Severity, Reaction): Coded Allergies: adhesive (Unverified Allergy, Severe, SKIN BREAK, 05/04/17) levofloxacin (Unverified Allergy, Severe, Itching, 05/04/17) morphine (Unverified Allergy, Severe, Nausea/Vomiting, 05/04/17) codeine (Unverified Adverse Reaction, Severe, NAUSEA, 05/04/17) Reported Meds & Prescriptions Reported Meds & Active Scripts Active Reported Vesicare (Solifenacin) 10 Mg Tab 10 Mg PO DAILY Systane Opth Drops (Polyethylene Glycol-Propylene Glycol Opth Drp) 0.4-0.3% Soln 1-2 Drop EACH EYE PRN PRN Arimidex (Anastrozole) 1 Mg Tab 1 Mg PO DAILY Myrbetriq (Mirabegron) 50 Mg Tab 50 Mg PO DAILY Aspirin EC (Aspirin) 81 Mg Tabdr 81 Mg PO DAILY Womens One Daily (Multiple Vitamins W/ Minerals) 1 Tab Tab 1 Tab PO DAILY Montelukast (Montelukast Sodium) 10 Mg Tab 10 Mg PO HS Ambien (Zolpidem Tartrate) 10 Mg Tab 10 Mg PO HS PRN Travatan Z Opth Drops (Travoprost) 0.004 % Soln 1 Drop EACH EYE HS Hyzaar (Losartan-Hydrochlorothiazide) 50-12.5 Mg Tab 1 Tab PO DAILY Vitamin D3 (Cholecalciferol) 1,000 Unit Chew 1,000 Units CHEW DAILY Review of Systems Except as stated in HPI: all other systems reviewed are Neg Physical Exam Narrative GENERAL: 76yo F in mild distress. SKIN: Focused skin assessment warm/dry. HEAD: Atraumatic. Normocephalic. EYES: Pupils equal and round. No scleral icterus. No injection or drainage. ENT: No nasal bleeding or discharge. Mucous membranes pink and moist. NECK: Trachea midline. No JVD. CARDIOVASCULAR: Regular rate and rhythm. No murmur appreciated. RESPIRATORY: No accessory muscle use. Clear to auscultation. Breath sounds equal bilaterally. GASTROINTESTINAL: Abdomen soft, non-tender, nondistended. MUSCULOSKELETAL: No obvious deformities. No clubbing. No cyanosis. No edema. NEUROLOGICAL: Awake and alert. Left facial droop. Decreased sensation in left arm and arm. Motor grossly within normal limits. Dysarthria. NIH stroke 4. PSYCHIATRIC: Appropriate mood and affect; insight and judgment normal. Data Data Last Documented VS Vital Signs Date Time Temp Pulse Resp B/P (MAP) Pulse Ox O2 Delivery O2 Flow Rate FiO2 05/04/17 16:23 88 12 188/80 (116) 97 Room Air 05/04/17 14:[address] Brain W/O Iv Contrast(Rout) (05/04/17 ) Nicardipine Inj (Cardene Inj) (05/04/17 15:15) Complete Blood Count With Diff (05/04/17 15:05) Basic Metabolic Panel (Bmp) (05/04/17 15:05) Prothrombin Time / Inr (Pt) (05/04/17 15:05) Act Partial Throm Time (Ptt) (05/04/17 15:05) Type And Screen (05/04/17 15:05) Cta Neck W Iv Contrast W 3d (05/04/17 15:05) Cta Brain W Iv Contrast W 3d (05/04/17 15:11) I-Stat Creatinine (05/04/17 15:05) I-Stat Profile (05/04/17 15:05) ^ Call Pharmacy (05/04/17 15:32) Nih Stroke Scale - Nihss .ONCE (05/04/17 15:32) Urinary Catheter Insert/Apply (05/04/17 15:32) Anticoagulant Alert (05/04/17 15:32) ^ Post Infusion Restrictions (05/04/17 15:32) ^ Medication Alert (05/04/17 15:32) Vital Signs (Adult) .As directed (05/04/17 15:32) Notify Dr: Blood Pressure (05/04/17 15:32) ^ Medication Alert (05/04/17 15:32) Alteplase Bolus (Activase Bolus) (05/04/17 15:45) Alteplase Drip (Activase Drip) (05/04/17 15:45) Sodium Chloride 0.9% Inj (Ns Inj) (05/04/17 15:45) [facility] Nursing Information (05/04/17 15:45) Resp Oxygen Onel C Titrat 1-4 L (05/04/17 ) Mri Brain W&W/O Contrast (05/04/17 ) Mra Brain W/O Contrast (Cow) (05/04/17 ) Lipid Profile (05/04/17 15:32) Scd Bilateral/Knee High DILCIA.QSHIFT (05/04/17 15:32) Admit To Inpatient (05/04/17 ) Code Status (05/04/17 16:24) Vital Signs (Adult) DILCIA.Q1H (05/04/17 16:24) Sodium Chlor 0.9% 1000 Ml Inj (Ns 1000 M (05/04/17 17:00) Famotidine Inj (Pepcid Inj) (05/04/17 21:00) Albuterol-Ipratropium Neb (Duoneb Neb) (05/04/17 16:30) Complete Blood Count With Diff (05/05/17 04:00) Comprehensive Metabolic Panel (05/05/17 04:00) Magnesium (Mg) (05/05/17 04:00) [employer] / Telemetry DILCIA.Q8H (05/04/17 16:24) Scd Bilateral/Knee High DILCIA.BID (05/04/17 16:24) Didier Bilateral/Knee High DILCIA.QSHIFT (05/04/17 17:00) ^ Initiate Protocol (05/04/17 16:24) Instruction (05/04/17 16:24) [facility] Nursing Information (05/04/17 16:30) Chlorhexidine 2% Cloth (Chlorhexidine 2% (05/05/17 04:00) Chlorhexidine 2% Cloth (Chlorhexidine 2% (05/04/17 16:30) Mrsa Pcr Surveillance (05/04/17 16:24) Docusate Sodium-Senna (Di-Colace) (05/04/17 21:00) Magnesium Hydroxide Liq (Milk Of Magnesi (05/04/17 16:30) Sennosides (Senokot) (05/04/17 16:30) Bisacodyl Supp (Dulcolax Supp) (05/04/17 16:30) Lactulose Liq (Lactulose Liq) (05/04/17 16:30) Inpatient Certification (05/04/17 ) Admit Order (Ed Use Only) (05/04/17 16:32) Labs Laboratory Tests Test 05/04/17 14:55 White Blood Count 5.2 TH/MM3 Red Blood Count 4.56 MIL/MM3 Hemoglobin 14.8 GM/DL Bedside Hemoglobin 13.9 G/DL Hematocrit 41.5 % Bedside Hematocrit 41.0 % Mean Corpuscular Volume 91.2 FL Mean Corpuscular Hemoglobin 32.4 PG Mean Corpuscular Hemoglobin Concent 35.6 % Red Cell Distribution Width 14.2 % Platelet Count 220 TH/MM3 Mean Platelet Volume 7.8 FL Neutrophils (%) (Auto) 66.8 % Lymphocytes (%) (Auto) 17.9 % Monocytes (%) (Auto) 10.2 % Eosinophils (%) (Auto) 4.4 % Basophils (%) (Auto) 0.7 % Neutrophils # (Auto) 3.5 TH/MM3 Lymphocytes # (Auto) 0.9 TH/MM3 Monocytes # (Auto) 0.5 TH/MM3 Eosinophils # (Auto) 0.2 TH/MM3 Basophils # (Auto) 0.0 TH/MM3 CBC Comment DIFF FINAL Differential Comment Prothrombin Time 9.9 SEC Prothromb Time International Ratio 1.0 RATIO Activated Partial Thromboplast Time 27.3 SEC Bedside Sodium 139 MMOL/L Blood Urea Nitrogen 21 MG/DL Creatinine 0.75 MG/DL Random Glucose 95 MG/DL Calcium Level 9.7 MG/DL Sodium Level 140 MEQ/L Potassium Level 3.7 MEQ/L Chloride Level 104 MEQ/L Carbon Dioxide Level 29.6 MEQ/L Bedside Potassium 3.7 MMOL/L Bedside Chloride 102 MMOL/L Anion Gap 6 MEQ/L Bedside Blood Urea Nitrogen 23 MG/DL Bedside Creatinine 0.7 MG/DL Estimat Glomerular Filtration Rate 75 ML/MIN Bedside Glucose 96 MG/DL Triglycerides Level 179 MG/DL Cholesterol Level 241 MG/DL LDL Cholesterol 134 MG/DL HDL Cholesterol 71.6 MG/DL Cholesterol/HDL Ratio 3.36 RATIO [facility] Medical Decision Making Medical Screen Exam Complete: Yes Emergency Medical Condition: Yes Interpretation(s) EKG: NSR 83bpm. LAD. No ST segment elevation or depression. Differential Diagnosis CVA vs. ICH Narrative Course 76yo F here with c/o slurred speech and found to have left facial droop and left arm and leg numbness. Stoke alert called immediately. CT brain negative. CTA brain negative. CTA neck negative. Discussed with Dr. Melara and nicardipine drip initiated because BP was elevated. BP was 166/68 and TPA was initiated after consent from patient and was obtained. Risk and benefits discussed. Labs reviewed, no leukocytosis. CMP unremarkable. Discussed with Dr. Reyes and accepted to his service. Pt reevaluated at bedside and symptoms has improved. Dysarthria and left sided numbness has improved. Continue to monitor in ICU. TPA bolus give at 3:40pm. Critical Care Narrative Aggregate critical care time was 45 minutes. Time to perform other separately billable procedures was not included in the critical care time. My time did not include minutes spent treating any other patients simultaneously or on activities that did not directly contribute to the patient's treatment. The services I provided to this patient were to treat and/or prevent clinically significant deterioration that could result in: cardiovascular collapse or . I provided critical care services requiring my management, as noted below: Chart data review, documentation time, medication orders and management, vital sign assessments/reviewing monitor data, ordering and reviewing lab tests, ordering and interpreting/reviewing x-rays and diagnostic studies, care of the patient and discussion of the patient with the admitting physicians. Diagnosis Primary Impression: CVA (cerebral vascular accident) Qualified Codes: I63.9 - Cerebral infarction, unspecified Admitting Information Admitting Physician Requests: it Liz Christiansen DO May 04, 2017 15:16
--- NOTE | 2017-05-04 15:19 | RADRPT ---
EXAM DATE/TIME: 05/04/2017 15:04 [facility] COMPARISON: No previous studies available for comparison. INDICATIONS : Stroke alert, slurred speech and left sided weakness. RADIATION DOSE: 33.70 CTDIvol (mGy) This report was called by Odette to Dr. Christiansen at 1517. MEDICAL HISTORY : Carcinoma, breast. Barton's palsy. SURGICAL HISTORY : None. ENCOUNTER: Initial ACUITY: 1 day PAIN SCALE: 0/10 LOCATION: cranial TECHNIQUE: Multiple contiguous axial images were obtained of the head. Using automated exposure control and adj ustment of the mA and/or kV according to patient size, radiation dose was kept as low as reasonably a chievable to obtain optimal diagnostic quality images. DICOM format image data is available electro nically for review and comparison. FINDINGS: CEREBRUM: The ventricles are normal for age. No evidence of midline shift, mass lesion, hemorrhage or acute in farction. No extra-axial fluid collections are seen. POSTERIOR FOSSA: The cerebellum and brainstem are intact. The 4th ventricle is midline. The cerebellopontine angle i s unremarkable. EXTRACRANIAL: The visualized portion of the orbits is intact. SKULL: The calvaria is intact. No evidence of skull fracture. CONCLUSION: No evidence of acute infarct, hemorrhage, mass or edema. Jude Sotelo MD on May 04, 2017 at 15:11 Board Certified Radiologist. This report was verified electronically.
[2017-05-04 15:28] LABS: I-STAT POTASSIUM 3.7 MMOL/L (3.5-4.9)
[2017-05-04 15:34] LABS: AUTOMATED NEUTROPHIL # 3.5 TH/MM3 (1.8-7.7); BASOPHIL % 0.7 % (0.0-2.0); EOSINOPHIL # 0.2 TH/MM3 (0-0.4); EOSINOPHIL % 4.4 % (0.0-4.0); HEMATOCRIT 41.5 % (35.0-46.0); HEMO FLAGS DIFF FINAL; LYMPH % 17.9 % (9.0-44.0); LYMPHOCYTE # 0.9 TH/MM3 (1.0-4.8); MEAN CELL VOLUME 91.2 FL (80.0-100.0); MEAN CORPUSCULAR HEMOGLOBIN 32.4 PG (27.0-34.0); MEAN CORPUSCULAR HGB CONC 35.6 % (32.0-36.0); MONO % 10.2 % (0.0-8.0); NEUT % 66.8 % (16.0-70.0); PLATELET COUNT 220 TH/MM3 (150-450); RED BLOOD COUNT 4.56 MIL/MM3 (4.00-5.30); RED CELL DISTRIBUTION WIDTH 14.2 % (11.6-17.2); WHITE BLOOD COUNT 5.2 TH/MM3 (4.0-11.0)
[2017-05-04 15:38] LABS: APTT (PATIENT) 27.3 SEC (24.3-30.1); PROTHROMBIN TIME - PATIENT 9.9 SEC (9.8-11.6)
[2017-05-04 15:39] LABS: BICARBONATE 29.6 MEQ/L (21.0-32.0); POTASSIUM 3.7 MEQ/L (3.5-5.1)
[2017-05-04] MEDS ORDERED: MISCELLANEOUS NURSING INFORMATION XX PRN (15:45)
[2017-05-04] MEDS ORDERED: SODIUM CHLORIDE 0.9% 50 ML BAG IVF ONE (15:45)
[2017-05-04] MEDS ORDERED: ALTEPLASE DRIP IV ONE (15:45)
[2017-05-04] MEDS ORDERED: ALTEPLASE BOLUS 9 MG/9 ML SYR IV ONE (15:45)
--- NOTE | 2017-05-04 16:05 | RADRPT ---
EXAM DATE/TIME: 05/04/2017 15:13 [facility] COMPARISON: No previous studies available for comparison. INDICATIONS : Stroke alert. Left sided weakness and slurred speech. IV CONTRAST: 50 cc Visipaque (iodixanol) IV ; Cumulative dose for multiple exams. RADIATION DOSE: 27.77 CTDIvol (mGy) ; Combined studies MEDICAL HISTORY : Non-responsive. SURGICAL HISTORY : Non-responsive. ENCOUNTER: Initial ACUITY: 1 day PAIN SCALE: 0/10 LOCATION: cranial TECHNIQUE: Volumetric scanning was performed using a multi-row detector CT scanner. The data was post processed with a variety of visualization algorithms including full volume maximum intensity pr ojection, multi-planar sliding thin slab reformation, curved planar reformation, and surface renderin g techniques. Using automated exposure control and adjustment of the mA and/or kV according to patie nt size, radiation dose was kept as low as reasonably achievable to obtain optimal diagnostic quality images. DICOM format image data is available electronically for review and comparison. FINDINGS: There is excellent visualization of the major intracranial arteries out to the second-order branch ve ssels. There is no evidence for aneurysm, vessel truncation or stenosis, and no evidence for vascula r malformation. CONCLUSION: Unremarkable exam. No evidence of vasculopathy, significant stenosis or proximal occlusive disease. No evidence of intraluminal filling defects. Jude Sotelo MD on May 04, 2017 at 16:00 Board Certified Radiologist. This report was verified electronically.
--- NOTE | 2017-05-04 16:08 | RADRPT ---
EXAM DATE/TIME: 05/04/2017 15:13 [facility] COMPARISON: No previous studies available for comparison. INDICATIONS : Stroke alert, left sided weakness and slurred speech. IV CONTRAST: 50 cc Visipaque (iodixanol) IV ; Cumulative dose for multiple exams. RADIATION DOSE: 27.77 CTDIvol (mGy) MEDICAL HISTORY : Non-responsive. SURGICAL HISTORY : Non-responsive. ENCOUNTER: Initial ACUITY: 1 day PAIN SCALE: 0/10 LOCATION: neck Elevated flow velocities and ICA/CCA ratios have been found to correlate with increased degrees of vessel stenosis, calculated as percentage of diameter relative to a normal segment of distal ICA/CCA. TECHNIQUE: Volumetric scanning was performed using a multirow detector CT scanner. The data was post processed with a variety of visualization algorithms including full-volume maximum intensity projection, multip lanar sliding thin-slab reformation, curved-planar reformation, and surface-rendering techniques. Us ing automated exposure control and adjustment of the mA and/or kV according to patient size, radiatio n dose was kept as low as reasonably achievable to obtain optimal diagnostic quality images. DICOM f ormat image data is available electronically for review and comparison. FINDINGS: AORTIC ARCH: There is a three-vessel origin of the great vessels from the aorta. Left vertebral artery originates from the aortic arch. No evidence of ostial narrowing. RIGHT CAROTID: The common carotid artery is intact. The carotid bulb has a normal configuration without ulceration o r narrowing. The internal carotid artery lumen is smooth without stenosis. The external carotid noel ry is intact. LEFT CAROTID: The common carotid artery is intact. The carotid bulb has a normal configuration without ulceration or narrowing. The internal carotid artery lumen is smooth without stenosis. The external carotid ar rinku is intact. VERTEBRALS: The vertebral arteries have a symmetric diameter. No stenotic lesions are seen. CONCLUSION: 1. No evidence of significant carotid stenosis or occlusion. 2. Left vertebral artery originates from the aortic arch. 3. Unremarkable aortic arch. Jude Sotelo MD on May 04, 2017 at 16:03 Board Certified Radiologist. This report was verified electronically.
--- NOTE | 2017-05-04 16:27 | MB ---
cc: NICANOR JUDGE DATE OF CONSULTATION: 05/04/2017 REASON FOR CONSULTATION Stroke alert. HISTORY OF PRESENT ILLNESS Ms. Wu is a 76-year-old woman who has a history of breast cancer treated with surgery with lumpectomy, who was in Dr. Garcia's office today, was last seen normal at 12:55 and developed slurred speech and left facial droop. She states her symptoms began around 01:30 p.m. She had some numbness in the left arm and left leg but no weakness. She has no prior history of stroke or TIA. PAST MEDICAL HISTORY 1. History of mitral valve prolapse. 2. History of breast cancer treated with lumpectomy. 3. History of diverticulitis. 4. History of malaria. 5. History of cervical spine surgery. 6. Anxiety. 7. Cataract surgery. MEDICATION 1. Azithromycin. 2. Arimidex. 3. Myrbetreq. 5. Aspirin 81 mg daily. 6. Multivitamin. 7. Montelukast. 8. Ambien. 9. Effexor. 10. Travatan. 11. Predforte. 12. Hyzaar. 13. Vitamin D3. ALLERGIES ADHESIVE, LEVOFLOXACIN, MORPHINE AND CODEINE. SOCIAL HISTORY Denies tobacco use. Drinks wine daily. NEUROLOGIC EXAMINATION VITAL SIGNS: Blood pressure initially 208/97, she has since been started on Cardene with blood pressure now 168/85, pulse 82, temperature 97.8 degrees. Higher cortical function, she is alert and oriented. Speech is dysarthric but not aphasic. Cranial nerves: She has a left upper motor neuron VII palsy. Pupils are 2 mm symmetric and reactive. Extraocular movements intact. Motor exam 5/5 strength of all groups in both upper and lower extremities. Reflexes are symmetric. Sensory exam is intact. IMAGING STUDIES CT of the brain is normal. Cerebellar testing is normal, reflexes are symmetric. LABORATORY DATA White count is pending. Hemoglobin 13.9, hematocrit 41%. Sodium is 139, potassium 3.7, chloride 102, BUN is 23, creatinine 0.7, glucose 96. IMPRESSION Acute right hemisphere stroke. RECOMMENDATIONS The patient does meet criteria for IV TPA. Her blood pressure is now controlled with Cardene. Recommend proceeding with TPA per protocol and then following the post TPA, order set for close neuro monitoring. We will evaluate her further with an MRI, MRA of the brain, carotid ultrasound and echocardiogram. Monitor cardiac ___ atrial fibrillation. Continue blood pressure control. MD LORENZO Levi/KALPANA /3:27 PM /3:52 PM
[2017-05-04] MEDS ORDERED: RESP: ALBUTEROL 2.5 MG/IPRATROPIUM 0.5 MG NEB (PRN) INH (16:30)
[2017-05-04] MEDS ORDERED: BISACODYL 10 MG SUPP RECTAL PRN (16:30)
[2017-05-04] MEDS ORDERED: LACTULOSE SYRUP 20 GM/30 ML CUP PO PRN (16:30)
[2017-05-04] MEDS ORDERED: MISCELLANEOUS NURSING INFORMATION XX SCH (16:30)
[2017-05-04] MEDS ORDERED: CHLORHEXIDINE GLUCONATE 2 % 1 PACK (2 CLOTHS) TOP PRN (16:30)
[2017-05-04] MEDS ORDERED: SENNOSIDES 8.6 MG TAB PO PRN (16:30)
[2017-05-04] MEDS ORDERED: MAGNESIUM HYDROXIDE SUSP 30 ML CUP PO PRN (16:30)
[2017-05-04 16:34] LABS: HDL CHOLESTEROL 71.6 MG/DL (40.0-60.0)
[2017-05-04] MEDS ORDERED: VESI10TA2 PO (17:08)
[2017-05-04] MEDS ORDERED: niCARdipine INJ 25 MG in SODIUM CHLOR 0.9% 250 ML INJ 240 ML IV PRN ×2 (17:15→17:30)
[2017-05-04] MEDS: SODIUM CHLOR 0.9% 1000 ML INJ 1,000 ML IV SCH (17:27)
--- NOTE | 2017-05-04 17:40 | HHI.HP ---
HPI Service Critical Care Medicine Primary Care Physician Alisha Guzman MD Admission Diagnosis CVA Diagnosis: Chief Complaint: Slurred speech, left-sided numbness Travel History International Travel<30 Days: No Contact w/Intl Traveler <30 Da: No Traveled to Known Affected Are: No History of Present Illness HPI 76yo F with PMH of breast cancer s/p left lumpectomy 10/2016 here with slurred speech while waiting at Dr. Garcia's office today. Pt also with left arm and leg numbness as well as left facial droop on exam. NIH stroke scale of 4. Pt last normal at 12:50pm when her dropped her off at the clinic. Denies any fever, chest pain, sob, n/v, abdominal pain, focal weakness. Patient was brought to the ER by private vehicle. Stroke alert was called. CTA head was negative for bleed. Agent was evaluated by Dr. Melara from neurology and was deemed to be a candidate for TPA. TPA infusion was started at 1540 hrs. patient was accepted for admission by critical care medicine service. When I evaluated the patient her TPA infusion had just completed. Patient stated that the left-sided numbness involving face and extremities had started to improve significantly. History was obtained by reviewing records, discussion with ER physician as well as discussion with patient and her . History PFSH Past Medical History Arthritis: Yes Asthma: No Blood Disorders: No Anxiety: Yes Depression: No Heart Rhythm Problems: No Cancer: Yes Cardiovascular Problems: Yes (mitral valve prolapse) High Cholesterol: Yes Chemotherapy: Yes (currently on chemo pill) Chest Pain: No Congestive Heart Failure: No COPD: No Cerebrovascular Accident: No Diabetes: No Endocrine: No Gastrointestinal Disorders: Yes (DIVERTICULITIS X 4, ) GERD: No Genitourinary: No Hepatitis: No Hiatal Hernia: No Hypertension: Yes Immune Disorder: No Implanted Vascular Access Dvce: Yes Kidney Stones: No Medical other: Yes (HX OF MALARIA X 3 (RAISED IN PANAMA)) Musculoskeletal: Yes (HX OF BACK/NECK PROBLEMS, TITANIUM PLATE IN NECK. FUSED LUMBAR SPINE) Neurologic: No Psychiatric: Yes (ANXIETY) Reproductive: No Respiratory: Yes Migraines: No Radiation Therapy: Yes Renal Failure: No Seizures: No Sleep Apnea: Yes (DOESN'T USE CPAP) Thyroid Disease: No Ulcer: No Past Surgical History Abdominal Surgery: Yes (TUMMY TUCK, COLON RESECTION) AICD: No Arteriovenous Shunt: No Body Medical Devices: TITANIUM PLATE AND SCREWS IN NECK, L BREAST MARKER Ear Surgery: No Endocrine Surgery: No Eye Surgery: Yes (CATARACT BILATERAL, INFLAMMATION IN SYDNI EYES) Genitourinary Surgery: Yes (BLADDER SUSP.) Gynecologic Surgery: Yes (D&C) Insulin Pump: No Joint Replacement: No Neurologic Surgery: Yes (ANT. CERVICAL FUSION 2009, LUMBAR FUSION) Oral Surgery: No Pacemaker: No Thoracic Surgery: Yes (L BREAST LUMPECTOMY (BENIGN)) Social History Alcohol Use: Yes (WINE DAILY) Tobacco Use: No Substance Use: Yes (1 cup) Allergies-Medications Allergies-Medications (Allergen,Severity, Reaction): Coded Allergies: adhesive (Unverified Allergy, Severe, SKIN BREAK, 02/26/17) levofloxacin (Unverified Allergy, Severe, Itching, 02/26/17) morphine (Unverified Allergy, Severe, Nausea/Vomiting, 02/26/17) codeine (Unverified Adverse Reaction, Severe, NAUSEA, 02/26/17) Reported Meds & Prescriptions Reported Meds & Active Scripts Active Reported Vesicare (Solifenacin) 10 Mg Tab 10 Mg PO DAILY Systane Opth Drops (Polyethylene Glycol-Propylene Glycol Opth Drp) 0.4-0.3% Soln 1-2 Drop EACH EYE PRN PRN Arimidex (Anastrozole) 1 Mg Tab 1 Mg PO DAILY Myrbetriq (Mirabegron) 50 Mg Tab 50 Mg PO DAILY Aspirin EC (Aspirin) 81 Mg Tabdr 81 Mg PO DAILY Womens One Daily (Multiple Vitamins W/ Minerals) 1 Tab Tab 1 Tab PO DAILY Montelukast (Montelukast Sodium) 10 Mg Tab 10 Mg PO HS Ambien (Zolpidem Tartrate) 10 Mg Tab 10 Mg PO HS PRN Travatan Z Opth Drops (Travoprost) 0.004 % Soln 1 Drop EACH EYE HS Hyzaar (Losartan-Hydrochlorothiazide) 50-12.5 Mg Tab 1 Tab PO DAILY Vitamin D3 (Cholecalciferol) 1,000 Unit Chew 1,000 Units CHEW DAILY ROS Review of Systems Except as stated in HPI: all other systems reviewed are Neg Physical Exam Vital Signs Vital Signs Date Time Temp Pulse Resp B/P (MAP) Pulse Ox O2 Delivery O2 Flow Rate FiO2 05/04/17 17:10 85 15 158/71 (100) 98 Room Air 05/04/17 16:55 84 19 161/72 (101) 98 05/04/17 16:40 83 12 165/79 (107) 98 Room Air 05/04/17 16:23 88 12 188/80 (116) 97 Room Air 05/04/17 16:20 84 16 166/68 (100) 98 Room Air 05/04/17 15:55 84 14 176/79 (111) 99 Room Air 05/04/17 15:33 88 213/93 05/04/17 15:30 86 18 180/84 (116) 98 Room Air 05/04/17 14:53 97.8 82 15 208/97 (134) 100 Room Air Physical Exam Narrative GENERAL: 76yo F laying in ER stretcher in no acute distress SKIN: Focused skin assessment warm/dry. HEAD: Atraumatic. Normocephalic. EYES: Pupils equal and round. No scleral icterus. No injection or drainage. ENT: No nasal bleeding or discharge. Mucous membranes pink and moist. NECK: Trachea midline. No JVD. CARDIOVASCULAR: Regular rate and rhythm. No murmur appreciated. RESPIRATORY: No accessory muscle use. Clear to auscultation. Breath sounds equal bilaterally. GASTROINTESTINAL: Abdomen soft, non-tender, nondistended. MUSCULOSKELETAL: No obvious deformities. No clubbing. No cyanosis. No edema. NEUROLOGICAL: Awake and alert. Minimal Left facial droop and slight slurring of speech. Decreased sensation in left arm and arm. Motor grossly within normal limits. NIH stroke 4. PSYCHIATRIC: Appropriate mood and affect; insight and judgment normal. Laboratory Laboratory Tests Test 05/04/17 14:55 White Blood Count 5.2 Red Blood Count 4.56 Hemoglobin 14.8 Bedside Hemoglobin 13.9 Hematocrit 41.5 Bedside Hematocrit 41.0 Mean Corpuscular Volume 91.2 Mean Corpuscular Hemoglobin 32.4 Mean Corpuscular Hemoglobin Concent 35.6 Red Cell Distribution Width 14.2 Platelet Count 220 Mean Platelet Volume 7.8 Neutrophils (%) (Auto) 66.8 Lymphocytes (%) (Auto) 17.9 Monocytes (%) (Auto) 10.2 Eosinophils (%) (Auto) 4.4 Basophils (%) (Auto) 0.7 Neutrophils # (Auto) 3.5 Lymphocytes # (Auto) 0.9 Monocytes # (Auto) 0.5 Eosinophils # (Auto) 0.2 Basophils # (Auto) 0.0 CBC Comment DIFF FINAL Differential Comment Prothrombin Time 9.9 Prothromb Time International Ratio 1.0 Activated Partial Thromboplast Time 27.3 Bedside Sodium 139 Blood Urea Nitrogen 21 Creatinine 0.75 Random Glucose 95 Calcium Level 9.7 Sodium Level 140 Potassium Level 3.7 Chloride Level 104 Carbon Dioxide Level 29.6 Bedside Potassium 3.7 Bedside Chloride 102 Anion Gap 6 Bedside Blood Urea Nitrogen 23 Bedside Creatinine 0.7 Estimat Glomerular Filtration Rate 75 Bedside Glucose 96 Triglycerides Level 179 Cholesterol Level 241 LDL Cholesterol 134 HDL Cholesterol 71.6 Cholesterol/HDL Ratio 3.36 Result Diagram: 05/04/17 1455 05/04/17 1455 Imaging Last Impressions Head CTA 05/04/17 1511 Signed Impressions: Service Date/Time: Thursday, May 04, 2017 15:13 - CONCLUSION: Unremarkable exam. No evidence of vasculopathy, significant stenosis or proximal occlusive disease. No evidence of intraluminal filling defects. Jude Sotelo MD Neck CTA 05/04/17 1505 Signed Impressions: Service Date/Time: Thursday, May 04, 2017 15:13 - CONCLUSION: 1. No evidence of significant carotid stenosis or occlusion. 2. Left vertebral artery originates from the aortic arch. 3. Unremarkable aortic arch. Jude Sotelo MD Head CT 05/04/17 0000 Signed Impressions: Service Date/Time: Thursday, May 04, 2017 15:04 - CONCLUSION: No evidence of acute infarct, hemorrhage, mass or edema. MD Mey Stacki VTE Risk Assessment Caprini VTE Risk Assessment: Mod/High Risk (score >= 2) Caprini Risk Assessment Model Point Value = 1 Point Value = 2 Point Value = 3 Point Value = 5 Age 41-60 Minor surgery BMI > 25 kg/m2 Swollen legs Varicose veins or History of unexplained or recurrent spontaneous Oral contraceptives or hormone replacement Sepsis (< 1 month) Serious lung disease, including pneumonia (< 1 month) Abnormal pulmonary function Acute myocardial infarction Congestive heart failure (< 1 month) History of inflammatory bowel disease Medical patient at bed rest Age 61-74 Arthroscopic surgery Major open surgery (> 45 min) Laparoscopic surgery (> 45 min) Malignancy Confined to bed (> 72 hours) Immobilizing plaster cast Central venous access Age >= 75 History of VTE Family history of VTE Factor V Leiden Prothrombin [id number] Lupus anticoagulant Anticardiolipin antibodies Elevated serum homocysteine Heparin-induced thrombocytopenia Other congenital or acquired thrombophilia Stroke (< 1 month) Elective arthroplasty Hip, pelvis, or leg fracture Acute spinal cord injury (< 1 month) Prophylaxis Regimen Total Risk Factor Score Risk Level Prophylaxis Regimen 0-1 Low Early ambulation 2 Moderate Order ONE of the following: *Sequential Compression Device (SCD) *Heparin 5000 units SQ BID 3-4 Higher Order ONE of the following medications: *Heparin 5000 units SQ TID *Enoxaparin/Lovenox 40 mg SQ daily (WT < 150 kg, CrCl > 30 mL/min) *Enoxaparin/Lovenox 30 mg SQ daily (WT < 150 kg, CrCl > 10-29 mL/min) *Enoxaparin/Lovenox 30 mg SQ BID (WT < 150 kg, CrCl > 30 mL/min) AND/OR *Sequential Compression Device (SCD) 5 or more Highest Order ONE of the following medications: *Heparin 5000 units SQ TID (Preferred with Epidurals) *Enoxaparin/Lovenox 40 mg SQ daily (WT < 150 kg, CrCl > 30 mL/min) *Enoxaparin/Lovenox 30 mg SQ daily (WT < 150 kg, CrCl > 10-29 mL/min) *Enoxaparin/Lovenox 30 mg SQ BID (WT < 150 kg, CrCl > 30 mL/min) AND *Sequential Compression Device (SCD) Assessment and Plan Assessment and Plan 76-year-old female with: Ischemic stroke status post thrombolysis Hypertensive emergency History of breast cancer Plan: Neuro: Status post thrombolysis for ischemic stroke. Being followed by neurology. Awaiting MRI MRA brain. 2-D echo. Further stroke workup per neurology. Repeat head CT tomorrow to follow-up following TPA. Start antiplatelet therapy when okay with neurology 24 hours after thrombolysis provided head CT negative for any bleeding complications. Cardiovascular: Nicardipine drip to keep blood pressure less than 180/105. Pulmonary: Awake and alert, protecting airway currently. Bronchodilators when necessary GI/liver: Speech swallow eval to advance by mouth diet. Renal/: Follow intake output, monitor and replete electro lites, follow BUN creatinine. Endocrine: Watch for hyperglycemia, SSI for glycemic control if needed. Heme-onc: Follow CBC. Continue by mouth meds for breast cancer. ID: No antibiotics indicated at this time. Prophylaxis: SCDs. Subcutaneous heparin when okay with neurology 24 hours after thrombolysis. Discussed with solution coordinator, discussed with CONTROL ENGINEER, discussed with ER physician. Time spent on critical care excluding procedures 50 minutes Yves Bella MD May 04, 2017 17:40
[2017-05-04] MEDS: DOCUSATE SODIUM 50 MG/SENNA 8.6 MG TAB PO SCH (21:00)
[2017-05-04] MEDS ORDERED: GADODIAMIDE PF 287 MG/ML 5 ML VIAL (for RAD MRI) IV PUSH ONE (21:25)
--- NOTE | 2017-05-04 21:49 | RADRPT ---
EXAM DATE/TIME: 05/04/2017 20:41 [facility] COMPARISON: No previous studies available for comparison. INDICATIONS : CVA. CONTRAST: 16 cc Omniscan (gadodiamide) IV MEDICAL HISTORY : Carcinoma, breast. Hypertension. SURGICAL HISTORY : Fusion, lumbar. Fusion, cervical. Colon resection. Right lumpectomy. ENCOUNTER: Subsequent ACUITY: 1 day PAIN SCORE: 3/10 LOCATION: cranial TECHNIQUE: Multiplanar, multisequence MRI of the brain was performed both prior to and following the administrat ion of paramagnetic contrast. FINDINGS: CEREBRUM: The ventricles are normal for age. No evidence of midline shift, mass lesion, hemorrhage or acute in farction. No extraaxial fluid collections are seen. The pituitary gland and suprasellar cistern are normal in configuration. WHITE MATTER: Mild signal abnormalities are seen in the white matter. POSTERIOR FOSSA: The cerebellum and brainstem are intact. The 4th ventricle is midline. The cerebellopontine angle is unremarkable. The cerebellar tonsils are normal in position. DIFFUSION IMAGING: No focal areas of restricted diffusion are seen. No evidence of acute infarction. EXTRACRANIAL: The visualized portions of the orbits and paranasal sinuses are unremarkable. POST-CONTRAST: No abnormal areas of parenchymal or dural enhancement. No evidence of blood-brain barrier breakdown. CONCLUSION: 1. No recent infarct. Mild white matter ischemic changes. No acute findings. Silas Suarez MD on May 04, 2017 at 21:44 Board Certified Radiologist. This report was verified electronically.
[2017-05-04] MEDS: FAMOTIDINE 20 MG/2 ML VIAL IV PUSH SCH (21:51)
--- NOTE | 2017-05-04 21:52 | RADRPT ---
EXAM DATE/TIME: 05/04/2017 20:41 [facility] COMPARISON: No previous studies available for comparison. INDICATIONS : CVA. MEDICAL HISTORY : Carcinoma, breast. Hypertension. SURGICAL HISTORY : Fusion, lumbar. Colon resection. Fusion, cervical. Right lumpectomy. ENCOUNTER: Subsequent ACUITY: 1 day PAIN SCORE: 3/10 LOCATION: cranial Please note a normal MRA of the brain does not entirely exclude the possibility of a small aneurysm, nor the possibility of distal intracranial vessel disease. TECHNIQUE: 3D time of flight MRA was performed. Source images, multiplanar STS MIP, and 3D volume MIP reconstru ctions were reviewed. FINDINGS: There is excellent visualization of the major intracranial arteries out to the second-order branch ve ssels. There is no evidence for aneurysm, vessel truncation or stenosis, and no evidence for vascula r malformation. CONCLUSION: Normal examination for a patient of this age. Silas Suarez MD on May 04, 2017 at 21:48 Board Certified Radiologist. This report was verified electronically.
[2017-05-04] MEDS: ARTIFICIAL TEARS OPTH OINT 3.5 APPLIC/3.5 GM TUBO EACH EYE SCH (23:27)
[2017-05-04] MEDS: LATANOPROST 0.005% OPHT SOLN 2.5 ML BTL EACH EYE SCH (23:27)
[2017-05-05] VITALS (13 sets, daily range): BP systolic 142–191; BP diastolic 68–87; PULSE 70–103; RESP 13–23; TEMP 97.8–99.1; O2SAT 94–100
[2017-05-05] MEDS: CHLORHEXIDINE GLUCONATE 2 % 1 PACK (2 CLOTHS) TOP SCH (03:53)
[2017-05-05] MEDS: SODIUM CHLOR 0.9% 1000 ML INJ 1,000 ML IV SCH ×2 (05:50→17:15)
--- NOTE | 2017-05-05 09:49 | HHI.CCPN ---
Subjective Remarks/Hospital Course 05/04: 76yo F with PMH of breast cancer s/p left lumpectomy 10/2016 here with slurred speech while waiting at Dr. Garcia's office today. Pt also with left arm and leg numbness as well as left facial droop on exam. NIH stroke scale of 4. Pt last normal at 12:50pm when her dropped her off at the clinic. Denies any fever, chest pain, sob, n/v, abdominal pain, focal weakness. Patient was brought to the ER by private vehicle. Stroke alert was called. CTA head was negative for bleed. Agent was evaluated by Dr. Melara from neurology and was deemed to be a candidate for TPA. TPA infusion was started at 1540 hrs. patient was accepted for admission by critical care medicine service. When I evaluated the patient her TPA infusion had just completed. Patient stated that the left-sided numbness involving face and extremities had started to improve significantly. History was obtained by reviewing records, discussion with ER physician as well as discussion with patient and her . 05/05: Resting in bed comfortably. Still has some facial numbness on the left and slurring however feels that her extremities are much better in terms of left -sided numbness. Moving all 4 extremities. Denies any headache nausea visual disturbance currently, wishes to eat. Objective Vital Signs Date Time Temp Pulse Resp B/P (MAP) Pulse Ox O2 Delivery O2 Flow Rate FiO2 05/05/17 08:37 100 21 05/05/17 06:00 72 05/05/17 04:06 191/87 05/05/17 04:00 98.6 13 05/04/17 19:00 Room Air Intake and Output 05/05/17 05/05/17 05/06/17 08:00 16:00 00:00 Intake Total 100 ml Output Total 1000 ml Balance -900 ml Result Diagram: 05/04/17 1455 05/04/17 1455 Imaging Last Impressions Head CTA 05/04/17 1511 Signed Impressions: Service Date/Time: Thursday, May 04, 2017 15:13 - CONCLUSION: Unremarkable exam. No evidence of vasculopathy, significant stenosis or proximal occlusive disease. No evidence of intraluminal filling defects. Jude Sotelo MD Neck CTA 05/04/17 1505 Signed Impressions: Service Date/Time: Thursday, May 04, 2017 15:13 - CONCLUSION: 1. No evidence of significant carotid stenosis or occlusion. 2. Left vertebral artery originates from the aortic arch. 3. Unremarkable aortic arch. Jude Sotelo MD Head CT 05/04/17 0000 Signed Impressions: Service Date/Time: Thursday, May 04, 2017 15:04 - CONCLUSION: No evidence of acute infarct, hemorrhage, mass or edema. Jude Sotelo MD Objective Remarks Narrative GENERAL: 76yo F laying in ER stretcher in no acute distress SKIN: Focused skin assessment warm/dry. HEAD: Atraumatic. Normocephalic. EYES: Pupils equal and round. No scleral icterus. No injection or drainage. ENT: No nasal bleeding or discharge. Mucous membranes pink and moist. NECK: Trachea midline. No JVD. CARDIOVASCULAR: Regular rate and rhythm. No murmur appreciated. RESPIRATORY: No accessory muscle use. Clear to auscultation. Breath sounds equal bilaterally. GASTROINTESTINAL: Abdomen soft, non-tender, nondistended. MUSCULOSKELETAL: No obvious deformities. No clubbing. No cyanosis. No edema. NEUROLOGICAL: Awake and alert. Minimal Left facial droop and slight slurring of speech. Decreased sensation in left arm and arm. Motor grossly within normal limits. PSYCHIATRIC: Appropriate mood and affect; insight and judgment normal. A/P Assessment and Plan 76-year-old female with: Ischemic stroke status post thrombolysis Hypertensive emergency History of breast cancer Plan: Neuro: Status post thrombolysis for ischemic stroke. Being followed by neurology. Follow-up MRI MRA brain. 2-D echo. Further stroke workup per neurology. Repeat head CT today to follow-up following TPA. Start antiplatelet therapy when okay with neurology 24 hours after thrombolysis provided head CT negative for any bleeding complications. Cardiovascular: Nicardipine drip to keep blood pressure less than 180/105. Pulmonary: Awake and alert, protecting airway currently. Bronchodilators when necessary GI/liver: Speech swallow eval, advance by mouth diet. Renal/: Follow intake output, monitor and replete electro lites, follow BUN creatinine. Endocrine: Watch for hyperglycemia, SSI for glycemic control if needed. Heme-onc: Follow CBC. Continue by mouth meds for breast cancer. ID: No antibiotics indicated at this time. Prophylaxis: SCDs. Subcutaneous heparin when okay with neurology 24 hours after thrombolysis. Transfer patient out of ICU later today if head CT negative for bleed. We'll consult hospitalist service for further medical management. Yves Bella MD May 05, 2017 09:48
[2017-05-05] MEDS: FAMOTIDINE 20 MG/2 ML VIAL IV PUSH SCH ×2 (10:08→20:15)
[2017-05-05] MEDS: DOCUSATE SODIUM 50 MG/SENNA 8.6 MG TAB PO SCH ×2 (10:08→21:03)
[2017-05-05] MEDS: ACETAMINOPHEN 325 MG TAB PO PRN ×2 (11:12→17:52)
--- NOTE | 2017-05-05 12:08 | EKG ---
Date Performed: 05/04/2017 Time Performed: 16:23:51 PTAGE: 76 years EKG: Sinus rhythm POSSIBLE OLF INFERIOR INFARCT ABNORMAL ECG Since PREVIOUS TRACING , no significant change noted PREVIOUS TRACIN02/26/2017 14.57 DOCTOR: Joseph Shelby Interpretating Date/Time 05/05/2017 12:08:28
[2017-05-05] MEDS ORDERED: hydrALAZINE HCL 20 MG/ML VIAL IV PUSH PRN (20:15)
[2017-05-05] MEDS: LATANOPROST 0.005% OPHT SOLN 2.5 ML BTL EACH EYE SCH (20:15)
[2017-05-05] MEDS: ARTIFICIAL TEARS OPTH OINT 3.5 APPLIC/3.5 GM TUBO EACH EYE SCH (20:15)
--- NOTE | 2017-05-05 20:56 | HHI.PR ---
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 Was ordered for 4 pm (24 hr post tpa) but was delayed as CT scanner in use for other emergency cases. Pt going down now for CT. start valtrex and prednisone for possible Remington Palsey Diagnosis/Plan: Subjective Subjective Comments No acute events reported tolerated TPA well feels speech back to normal but notices left facial weakness Active Medications Current Medications Medications (Trade) Dose Ordered Sig/Millicent Route Start Time Stop Time Status Last Admin Sodium Chloride 1,000 ml @ 84 mls/hr [id number] IV 05/04/17 17:00 05/05/17 17:15 (Pepcid Inj) 20 mg Q12HR IV PUSH 05/04/17 21:00 05/05/17 20:15 (Duoneb Neb) 1 ampule Q4HR NEB PRN INH 05/04/17 16:30 Miscellaneous Information 1 [id number] XX 05/04/17 16:30 (Chlorhexidine 2% Cloth) 3 pack Taper DAILY@04 TOP 05/05/17 04:00 05/01/18 03:59 (Chlorhexidine 2% Cloth) 3 pack UNSCH PRN TOP 05/04/17 16:30 (Di-Colace) 1 tab BID PO 05/04/17 21:00 05/05/17 10:08 (Milk Of Magnesia Liq) 30 ml Q12H PRN PO 05/04/17 16:30 (Senokot) 17.2 mg Q12H PRN PO 05/04/17 16:30 (Dulcolax Supp) 10 mg DAILY PRN RECTAL 05/04/17 16:30 (Lactulose Liq) 30 ml DAILY PRN PO 05/04/17 16:30 Nicardipine HCl 25 mg/Sodium Chloride 250 ml @ 50 mls/hr TITRATE PRN IV 05/04/17 17:30 05/05/17 04:06 (Lacrilube Opht Oint) 1 applic HS EACH EYE 05/04/17 23:00 05/05/17 20:15 (Xalatan 0.005% Opth Soln) 1 drop HS EACH EYE 05/04/17 23:00 05/05/17 20:15 (Tylenol) 650 mg Q4H PRN PO 05/05/17 10:45 05/05/17 17:52 (Trandate) 100 mg Q8H PO 05/05/17 20:00 (Norvasc) 10 mg DAILY PO 05/05/17 20:00 05/05/17 20:15 (Apresoline Inj) 10 mg Q4H PRN IV PUSH 05/05/17 20:15 05/05/17 20:15 Allergies Allergies Coded Allergies adhesive (Unverified Allergy, Severe, SKIN BREAK, 05/04/17) levofloxacin (Unverified Allergy, Severe, Itching, 05/04/17) morphine (Unverified Allergy, Severe, Nausea/Vomiting, 05/04/17) codeine (Unverified Adverse Reaction, Severe, NAUSEA, 05/04/17) Exam I&O / VS 05/05/17 05/05/17 05/06/17 15:00 23:00 07:00 Intake Total 1460 ml Output Total 1600 ml Balance -140 ml Intake Oral 460 ml IV Total 1000 ml Output Urine Total 1600 ml # Bowel Movements 1 Vital Signs Date Time Temp Pulse Resp B/P (MAP) Pulse Ox O2 Delivery O2 Flow Rate FiO2 05/05/17 18:52 16 05/05/17 18:00 78 05/05/17 16:00 98.3 84 17 151/68 (95) 94 05/05/17 16:00 84 05/05/17 14:00 80 05/05/17 12:00 82 05/05/17 12:00 98.1 84 23 150/72 (98) 96 05/05/17 10:00 78 05/05/17 08:37 100 21 05/05/17 08:00 74 05/05/17 08:00 98.7 74 22 161/72 (101) 96 05/05/17 07:00 95 Room Air 05/05/17 06:00 72 05/05/17 04:06 70 191/87 05/05/17 04:00 98.6 70 13 191/87 (121) 97 05/05/17 04:00 79 05/05/17 02:00 74 05/05/17 00:00 97.8 71 13 156/69 (98) 95 05/05/17 00:00 71 05/04/17 22:00 78 Exam Comments alert, speech normal CN---left lower motor neuron CN 7 deficit---weak left lower face, but also weak in closing left eye and wrinkling left forehead. PERRL, EOMI MOTOR 5/5 BUE and BLE. NO drift Objective Radiology Results MRI brain--no acute cva CTA brain and neck--normal Kirby Melara PhD May 05, 2017 20:56
[2017-05-05] MEDS: ARTIFICIAL TEARS OPTH OINT 3.5 APPLIC/3.5 GM TUBO LEFT EYE SCH (21:00)
[2017-05-05] MEDS: LABETALOL HCL 100 MG TAB PO SCH (21:03)
--- NOTE | 2017-05-05 21:42 | RADRPT ---
EXAM DATE/TIME: 05/05/2017 21:13 [facility] COMPARISON: No previous studies available for comparison. INDICATIONS : Post TPA. RADIATION DOSE: 30.73 CTDIvol (mGy) MEDICAL HISTORY : Cardiovascular disease. Hypertension. Carcinoma, breast. SURGICAL HISTORY : None. ENCOUNTER: Initial ACUITY: 1 day PAIN SCALE: 0/10 LOCATION: cranial TECHNIQUE: Multiple contiguous axial images were obtained of the head. Using automated exposure control and adj ustment of the mA and/or kV according to patient size, radiation dose was kept as low as reasonably a chievable to obtain optimal diagnostic quality images. DICOM format image data is available electro nically for review and comparison. FINDINGS: CEREBRUM: The ventricles are normal for age. No evidence of midline shift, mass lesion, hemorrhage or acute in farction. No extra-axial fluid collections are seen. POSTERIOR FOSSA: The cerebellum and brainstem are intact. The 4th ventricle is midline. The cerebellopontine angle i s unremarkable. EXTRACRANIAL: The visualized portion of the orbits is intact. SKULL: The calvaria is intact. No evidence of skull fracture. CONCLUSION: 1. No acute intracranial abnormalities. Silas Suarez MD on May 05, 2017 at 21:40 Board Certified Radiologist. This report was verified electronically.
[2017-05-05] MEDS: ZOLPIDEM TARTRATE 10 MG TAB PO PRN (22:16)
[2017-05-05] MEDS: valACYclovir HCL 500 MG TAB PO SCH (22:16)
[2017-05-06] MEDS: CHLORHEXIDINE GLUCONATE 2 % 1 PACK (2 CLOTHS) TOP SCH (03:30)
[2017-05-06] MEDS: LABETALOL HCL 100 MG TAB PO SCH ×3 (03:47→21:55)
[2017-05-06] MEDS: SODIUM CHLOR 0.9% 1000 ML INJ 1,000 ML IV SCH (03:48)
[2017-05-06 05:30] VITALS: BP 140/60; PULSE 86; RESP 18; TEMP 98.8; O2SAT 98
[2017-05-06] MEDS: valACYclovir HCL 500 MG TAB PO SCH ×3 (05:47→21:54)
[2017-05-06 06:08] LABS: AUTOMATED NEUTROPHIL # 3.8 TH/MM3 (1.8-7.7); BASOPHIL % 0.5 % (0.0-2.0); EOSINOPHIL # 0.3 TH/MM3 (0-0.4); EOSINOPHIL % 4.9 % (0.0-4.0); HEMATOCRIT 40.2 % (35.0-46.0); HEMO FLAGS DIFF FINAL; LYMPHOCYTE # 0.8 TH/MM3 (1.0-4.8); MEAN CELL VOLUME 92.2 FL (80.0-100.0); MEAN CORPUSCULAR HEMOGLOBIN 31.5 PG (27.0-34.0); MEAN CORPUSCULAR HGB CONC 34.1 % (32.0-36.0); MONO % 10.2 % (0.0-8.0); NEUT % 69.4 % (16.0-70.0); PLATELET COUNT 205 TH/MM3 (150-450); RED BLOOD COUNT 4.36 MIL/MM3 (4.00-5.30); RED CELL DISTRIBUTION WIDTH 14.3 % (11.6-17.2); WHITE BLOOD COUNT 5.4 TH/MM3 (4.0-11.0)
[2017-05-06 06:29] LABS: ALT (GPT) 32 U/L (10-53); ANION GAP 7 MEQ/L (5-15); AST (GOT) 27 U/L (15-37); BICARBONATE 26.2 MEQ/L (21.0-32.0); BLOOD UREA NITROGEN 14 MG/DL (7-18); CHLORIDE 109 MEQ/L (98-107); GLOMERULAR FILTRATION RATE 80 ML/MIN (>89); MAGNESIUM 1.7 MG/DL (1.5-2.5); POTASSIUM 3.5 MEQ/L (3.5-5.1); SODIUM (NA) 142 MEQ/L (136-145)
[2017-05-06 06:31] LABS: ALKALINE PHOSPHATASE 94 U/L (45-117); TOTAL BILIRUBIN ADULT 0.4 MG/DL (0.2-1.0)
[2017-05-06] MEDS: ARTIFICIAL TEARS OPTH OINT 3.5 APPLIC/3.5 GM TUBO LEFT EYE SCH ×2 (08:08→21:58)
[2017-05-06] MEDS: predniSONE 50 MG TAB PO SCH (08:09)
[2017-05-06] MEDS: DOCUSATE SODIUM 50 MG/SENNA 8.6 MG TAB PO SCH ×2 (08:09→21:55)
[2017-05-06] MEDS: FAMOTIDINE 20 MG/2 ML VIAL IV PUSH SCH ×2 (08:09→21:54)
[2017-05-06 08:20] VITALS: BP 175/81; PULSE 81; RESP 17; TEMP 98.2; O2SAT 97
[2017-05-06 12:00] VITALS: O2SAT 98
[2017-05-06 12:33] VITALS: BP 180/75; PULSE 81; RESP 18; TEMP 97.7; O2SAT 98
[2017-05-06] MEDS: ACETAMINOPHEN 325 MG TAB PO PRN ×2 (13:00→21:55)
--- NOTE | 2017-05-06 14:26 | HHI.PR ---
Subjective Remarks Follow-up for TIA, possible Barton's palsy. Patient is currently doing well. She is concerned about her facial asymmetry and slight speech difficulty. She does not report any other focal neurological deficits. No fever or chills. Objective Vitals Vital Signs Date Time Temp Pulse Resp B/P (MAP) Pulse Ox O2 Delivery O2 Flow Rate FiO2 05/06/17 12:33 97.7 81 18 180/75 (110) 98 05/06/17 08:20 98.2 81 17 175/81 (112) 97 05/06/17 05:30 98.8 86 18 140/60 (86) 98 05/05/17 22:00 99.1 89 18 142/69 (93) 98 05/05/17 20:00 98.0 103 17 174/73 (106) 97 05/05/17 20:00 103 05/05/17 19:00 97 Room Air 05/05/17 18:52 16 05/05/17 18:00 78 05/05/17 16:00 98.3 84 17 151/68 (95) 94 05/05/17 16:00 84 I/O 05/05/17 05/05/17 05/05/17 05/06/17 05/06/17 05/06/17 06:59 14:59 22:59 06:59 14:59 22:59 Intake Total 100 ml 1610 ml 850 ml Output Total 1000 ml 2000 ml Balance -900 ml -390 ml 850 ml Intake Oral 100 ml 610 ml 850 ml IV Total 1000 ml Output Urine Total 1000 ml 2000 ml # Voids 1 4 # Bowel Movements 0 1 0 Result Diagram: 05/06/17 0540 05/06/17 0540 Imaging Last Impressions Head CT 05/05/17 0000 Signed Impressions: Service Date/Time: Friday, May 05, 2017 21:13 - CONCLUSION: 1. No acute intracranial abnormalities. Silas Suarez MD Head CTA 05/04/17 1511 Signed Impressions: Service Date/Time: Thursday, May 04, 2017 15:13 - CONCLUSION: Unremarkable exam. No evidence of vasculopathy, significant stenosis or proximal occlusive disease. No evidence of intraluminal filling defects. Jude Sotelo MD Neck CTA 05/04/17 1505 Signed Impressions: Service Date/Time: Thursday, May 04, 2017 15:13 - CONCLUSION: 1. No evidence of significant carotid stenosis or occlusion. 2. Left vertebral artery originates from the aortic arch. 3. Unremarkable aortic arch. Jude Sotelo MD Head Magnetic Resonance Angiography 05/04/17 0000 Signed Impressions: Service Date/Time: Thursday, May 04, 2017 20:41 - CONCLUSION: Normal examination for a patient of this age. Silas Suarez MD Brain MRI 05/04/17 0000 Signed Impressions: Service Date/Time: Thursday, May 04, 2017 20:41 - CONCLUSION: 1. No recent infarct. Mild white matter ischemic changes. No acute findings. Silas Suarez MD Objective Remarks GENERAL: Alert, oriented 3, NAD. SKIN: Warm and dry. HEAD: Normocephalic. EYES: No scleral icterus. No injection or drainage. NECK: Supple, trachea midline. No JVD or lymphadenopathy. CARDIOVASCULAR: Regular rate and rhythm without murmurs, gallops, or rubs. RESPIRATORY: Breath sounds equal bilaterally. No accessory muscle use. GASTROINTESTINAL: Abdomen soft, non-tender, nondistended. MUSCULOSKELETAL: No cyanosis, or edema. Neuro: Left facial droop, left upper eyelid asymmetry slight speech difficulty. No other focal neurological deficits. BACK: Nontender without obvious deformity. No CVA tenderness. Procedures TPA administration 05/04/2017. 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 Wu is a pleasant 76-year-old female with a history of breast cancer status post left lumpectomy 2016 who presented to Hospital due to left arm and leg numbness as well as left facial droop on exam. She also had some speech difficulty. Patient was evaluated by neurology and TPA was administered. Patient was observed in the rectal care unit and subsequently transferred to the floor. - Cerebrovascular accident - MRI does not show any evidence of stroke. CT scan does not show any hemorrhage after TPA. - Neurology following. - Since patient was on aspirin prior to this admission, she will likely need Plavix. Defer to neurology. - She will also likely need speech therapy on discharge. 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 - Hyperlipidemia - Total cholesterol 241, LDL 134, HDL 71.6. - We'll start patient on Lipitor 40 mg daily at bedtime. - Left sided breast cancer status post lumpectomy. Continued outpatient follow- up. Full code. Ambulation. Discharge plan: Possible discharge on 05/07/2017 after neurology clears patient for discharge. Problem Qualifiers (1) CVA (cerebral vascular accident): Saskia Lopez DO May 06, 2017 2:26 pm
[2017-05-06 17:52] VITALS: O2SAT 98
[2017-05-06 20:50] VITALS: BP 168/67; PULSE 80; RESP 17; TEMP 98.8; O2SAT 100
[2017-05-06] MEDS ORDERED: ATORVASTATIN 40 MG TAB PO SCH (21:00)
[2017-05-06] MEDS: ZOLPIDEM TARTRATE 10 MG TAB PO PRN (21:54)
[2017-05-06] MEDS: LATANOPROST 0.005% OPHT SOLN 2.5 ML BTL EACH EYE SCH (21:59)
[2017-05-06] MEDS: ARTIFICIAL TEARS OPTH OINT 3.5 APPLIC/3.5 GM TUBO EACH EYE SCH (21:59)
[2017-05-06] MEDS ORDERED: ENALAPRILAT 2.5 MG/2 ML VIAL IV PUSH PRN (22:45)
[2017-05-07 00:30] VITALS: BP 160/69; PULSE 88; RESP 18; TEMP 97.8; O2SAT 100
[2017-05-07] MEDS: SODIUM CHLOR 0.9% 1000 ML INJ 1,000 ML IV SCH ×2 (01:55→04:35)
[2017-05-07] MEDS: CHLORHEXIDINE GLUCONATE 2 % 1 PACK (2 CLOTHS) TOP SCH (04:00)
[2017-05-07 04:15] VITALS: BP 150/78; PULSE 64; RESP 17; TEMP 98.2; O2SAT 100
[2017-05-07] MEDS: valACYclovir HCL 500 MG TAB PO SCH (05:08)
[2017-05-07] MEDS: LABETALOL HCL 100 MG TAB PO SCH (05:08)
[2017-05-07] MEDS: predniSONE 50 MG TAB PO SCH (08:00)
[2017-05-07] MEDS: FAMOTIDINE 20 MG/2 ML VIAL IV PUSH SCH (08:01)
[2017-05-07] MEDS: DOCUSATE SODIUM 50 MG/SENNA 8.6 MG TAB PO SCH (08:01)
[2017-05-07] MEDS: ARTIFICIAL TEARS OPTH OINT 3.5 APPLIC/3.5 GM TUBO LEFT EYE SCH (08:02)
[2017-05-07 08:17] VITALS: BP 162/72; PULSE 79; RESP 20; TEMP 98.2; O2SAT 95
--- NOTE | 2017-05-07 08:41 | HHI.PR ---
Subjective Remarks Follow up for Barton's Palsy, TIA. Patient is doing well. She continues to have left facial droop. No fever, chills. No other focal neurological deficits. Objective Vitals Vital Signs Date Time Temp Pulse Resp B/P (MAP) Pulse Ox O2 Delivery O2 Flow Rate FiO2 05/07/17 08:17 98.2 79 20 162/72 (102) 95 05/07/17 04:15 98.2 64 17 150/78 (102) 100 05/07/17 00:30 97.8 88 18 160/69 (99) 100 05/06/17 20:50 98.8 80 17 168/67 (100) 100 05/06/17 17:52 98 21 05/06/17 12:33 97.7 81 18 180/75 (110) 98 05/06/17 12:00 98 I/O 05/06/17 05/06/17 05/06/17 05/07/17 05/07/17 05/07/17 07:00 15:00 23:00 07:00 15:00 23:00 Intake Total 850 ml 800 ml 500 ml Output Total 600 ml Balance 850 ml 800 ml -100 ml Intake Oral 850 ml 800 ml 500 ml Output Urine Total 600 ml # Voids 4 1 # Bowel Movements 0 0 0 Result Diagram: 05/06/17 0540 05/06/17 0540 Imaging Last Impressions Head CT 05/05/17 0000 Signed Impressions: Service Date/Time: Friday, May 05, 2017 21:13 - CONCLUSION: 1. No acute intracranial abnormalities. Silas Suarez MD Head CTA 05/04/17 1511 Signed Impressions: Service Date/Time: Thursday, May 04, 2017 15:13 - CONCLUSION: Unremarkable exam. No evidence of vasculopathy, significant stenosis or proximal occlusive disease. No evidence of intraluminal filling defects. Jude Sotelo MD Neck CTA 05/04/17 1505 Signed Impressions: Service Date/Time: Thursday, May 04, 2017 15:13 - CONCLUSION: 1. No evidence of significant carotid stenosis or occlusion. 2. Left vertebral artery originates from the aortic arch. 3. Unremarkable aortic arch. Jude Sotelo MD Head Magnetic Resonance Angiography 05/04/17 0000 Signed Impressions: Service Date/Time: Thursday, May 04, 2017 20:41 - CONCLUSION: Normal examination for a patient of this age. Silas Suarez MD Brain MRI 05/04/17 0000 Signed Impressions: Service Date/Time: Thursday, May 04, 2017 20:41 - CONCLUSION: 1. No recent infarct. Mild white matter ischemic changes. No acute findings. Silas Suarez MD Objective Remarks GENERAL: Alert, oriented 3, NAD. SKIN: Warm and dry. HEAD: Normocephalic. EYES: No scleral icterus. No injection or drainage. NECK: Supple, trachea midline. No JVD or lymphadenopathy. CARDIOVASCULAR: Regular rate and rhythm without murmurs, gallops, or rubs. RESPIRATORY: Breath sounds equal bilaterally. No accessory muscle use. GASTROINTESTINAL: Abdomen soft, non-tender, nondistended. MUSCULOSKELETAL: No cyanosis, or edema. Neuro: Left facial droop, left upper eyelid asymmetry slight speech difficulty. No other focal neurological deficits. BACK: Nontender without obvious deformity. No CVA tenderness. Procedures TPA administration 05/04/2017. 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 Wu is a pleasant 76-year-old female with a history of breast cancer status post left lumpectomy 2016 who presented to Hospital due to left arm and leg numbness as well as left facial droop on exam. She also had some speech difficulty. Patient was evaluated by neurology and TPA was administered. Patient was observed in the rectal care unit and subsequently transferred to the floor. - Cerebrovascular accident - MRI does not show any evidence of stroke. CT scan does not show any hemorrhage after TPA. - Neurology following. - Since patient was on aspirin prior to this admission, she will likely need Plavix. Defer to neurology. - She will also likely need speech therapy on discharge. 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 - Hyperlipidemia - Total cholesterol 241, LDL 134, HDL 71.6. - We'll start patient on Lipitor 40 mg daily at bedtime. - Left sided breast cancer status post lumpectomy. Continued outpatient follow- up. Full code. Ambulation. Discharge plan: Possible discharge on 05/07/2017 after neurology clears patient for discharge. Problem Qualifiers (1) CVA (cerebral vascular accident): Saskia Lopez DO May 07, 2017 8:41 am
[2017-05-07] MEDS ORDERED: VALT1TAB PO (08:45)
[2017-05-07] MEDS ORDERED: PLAV75TA29 PO (08:45)
[2017-05-07] MEDS ORDERED: PRED20 PO (08:45)
[2017-05-07] MEDS ORDERED: ATOR40TA16 PO (08:46)
--- NOTE | 2017-05-07 08:47 | HHI.DS ---
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 Brief History - From Admission HPI 76yo F with PMH of breast cancer s/p left lumpectomy 10/2016 here with slurred speech while waiting at Dr. Garcia's office today. Pt also with left arm and leg numbness as well as left facial droop on exam. NIH stroke scale of 4. Pt last normal at 12:50pm when her dropped her off at the clinic. Denies any fever, chest pain, sob, n/v, abdominal pain, focal weakness. Patient was brought to the ER by private vehicle. Stroke alert was called. CTA head was negative for bleed. Agent was evaluated by Dr. Melara from neurology and was deemed to be a candidate for TPA. TPA infusion was started at 1540 hrs. patient was accepted for admission by critical care medicine service. When I evaluated the patient her TPA infusion had just completed. Patient stated that the left-sided numbness involving face and extremities had started to improve significantly. History was obtained by reviewing records, discussion with ER physician as well as discussion with patient and her . History PFSH Past Medical History Arthritis: Yes Asthma: No Blood Disorders: No Anxiety: Yes Depression: No Heart Rhythm Problems: No Cancer: Yes Cardiovascular Problems: Yes (mitral valve prolapse) High Cholesterol: Yes Chemotherapy: Yes (currently on chemo pill) Chest Pain: No Congestive Heart Failure: No COPD: No Cerebrovascular Accident: No Diabetes: No Endocrine: No Gastrointestinal Disorders: Yes (DIVERTICULITIS X 4, ) GERD: No Genitourinary: No Hepatitis: No Hiatal Hernia: No Hypertension: Yes Immune Disorder: No Implanted Vascular Access Dvce: Yes Kidney Stones: No Medical other: Yes (HX OF MALARIA X 3 [facility] Musculoskeletal: Yes (HX OF BACK/NECK PROBLEMS, TITANIUM PLATE IN NECK. FUSED LUMBAR SPINE) Neurologic: No Psychiatric: Yes (ANXIETY) Reproductive: No Respiratory: Yes Migraines: No Radiation Therapy: Yes Renal Failure: No Seizures: No Sleep Apnea: Yes (DOESN'T USE CPAP) Thyroid Disease: No Ulcer: No Past Surgical History Abdominal Surgery: Yes (TUMMY TUCK, COLON RESECTION) AICD: No Arteriovenous Shunt: No Body Medical Devices: TITANIUM PLATE AND SCREWS IN NECK, L BREAST MARKER Ear Surgery: No Endocrine Surgery: No Eye Surgery: Yes (CATARACT BILATERAL, INFLAMMATION IN SYDNI EYES) Genitourinary Surgery: Yes (BLADDER SUSP.) Gynecologic Surgery: Yes (D&C) Insulin Pump: No Joint Replacement: No Neurologic Surgery: Yes (ANT. CERVICAL FUSION 2009, LUMBAR FUSION) Oral Surgery: No Pacemaker: No Thoracic Surgery: Yes (L BREAST LUMPECTOMY (BENIGN)) Social History Alcohol Use: Yes (WINE DAILY) Tobacco Use: No Substance Use: Yes (1 cup) Allergies-Medications Allergies-Medications (Allergen,Severity, Reaction): Coded Allergies: adhesive (Unverified Allergy, Severe, SKIN BREAK, 02/26/17) levofloxacin (Unverified Allergy, Severe, Itching, 02/26/17) morphine (Unverified Allergy, Severe, Nausea/Vomiting, 02/26/17) codeine (Unverified Adverse Reaction, Severe, NAUSEA, 02/26/17) Reported Meds & Prescriptions Reported Meds & Active Scripts Active Reported Vesicare (Solifenacin) 10 Mg Tab 10 Mg PO DAILY Systane Opth Drops (Polyethylene Glycol-Propylene Glycol Opth Drp) 0.4-0.3% Soln 1-2 Drop EACH EYE PRN PRN Arimidex (Anastrozole) 1 Mg Tab 1 Mg PO DAILY Myrbetriq (Mirabegron) 50 Mg Tab 50 Mg PO DAILY Aspirin EC (Aspirin) 81 Mg Tabdr 81 Mg PO DAILY Womens One Daily (Multiple Vitamins W/ Minerals) 1 Tab Tab 1 Tab PO DAILY Montelukast (Montelukast Sodium) 10 Mg Tab 10 Mg PO HS Ambien (Zolpidem Tartrate) 10 Mg Tab 10 Mg PO HS PRN Travatan Z Opth Drops (Travoprost) 0.004 % Soln 1 Drop EACH EYE HS Hyzaar (Losartan-Hydrochlorothiazide) 50-12.5 Mg Tab 1 Tab PO DAILY Vitamin D3 (Cholecalciferol) 1,000 Unit Chew 1,000 Units CHEW DAILY ROS Review of Systems Except as stated in HPI: all other systems reviewed are Neg CBC/BMP: 05/06/17 0540 05/06/17 0540 Significant Findings Laboratory Tests Test 05/04/17 14:55 05/04/17 17:45 05/06/17 05:40 Monocytes (%) (Auto) 10.2 % (0.0-8.0) 10.2 % (0.0-8.0) Eosinophils (%) (Auto) 4.4 % (0.0-4.0) 4.9 % (0.0-4.0) Lymphocytes # (Auto) 0.9 TH/MM3 (1.0-4.8) 0.8 TH/MM3 (1.0-4.8) Blood Urea Nitrogen 21 MG/DL (7-18) Estimat Glomerular Filtration Rate 75 ML/MIN (>89) 80 ML/MIN (>89) Bedside Glucose 96 MG/DL (60-95) Triglycerides Level 179 MG/DL (42-150) Cholesterol Level 241 MG/DL (120-200) LDL Cholesterol 134 MG/DL (0-99) HDL Cholesterol 71.6 MG/DL (40.0-60.0) Random Glucose 115 MG/DL (74-106) Albumin 3.3 GM/DL (3.4-5.0) Chloride Level 109 MEQ/L (98-107) Imaging Last Impressions Head CT 05/05/17 0000 Signed Impressions: Service Date/Time: Friday, May 05, 2017 21:13 - CONCLUSION: 1. No acute intracranial abnormalities. Silas Suarez MD Head CTA 05/04/17 1511 Signed Impressions: Service Date/Time: Thursday, May 04, 2017 15:13 - CONCLUSION: Unremarkable exam. No evidence of vasculopathy, significant stenosis or proximal occlusive disease. No evidence of intraluminal filling defects. Jude Sotelo MD Neck CTA 05/04/17 1505 Signed Impressions: Service Date/Time: Thursday, May 04, 2017 15:13 - CONCLUSION: 1. No evidence of significant carotid stenosis or occlusion. 2. Left vertebral artery originates from the aortic arch. 3. Unremarkable aortic arch. Jude Sotelo MD Head Magnetic Resonance Angiography 05/04/17 0000 Signed Impressions: Service Date/Time: Thursday, May 04, 2017 20:41 - CONCLUSION: Normal examination for a patient of this age. Silas Suarez MD Brain MRI 05/04/17 0000 Signed Impressions: Service Date/Time: Thursday, May 04, 2017 20:41 - CONCLUSION: 1. No recent infarct. Mild white matter ischemic changes. No acute findings. Silas Suarez MD PE at Discharge GENERAL: Alert, oriented 3, NAD. SKIN: Warm and dry. HEAD: Normocephalic. EYES: No scleral icterus. No injection or drainage. NECK: Supple, trachea midline. No JVD or lymphadenopathy. CARDIOVASCULAR: Regular rate and rhythm without murmurs, gallops, or rubs. RESPIRATORY: Breath sounds equal bilaterally. No accessory muscle use. GASTROINTESTINAL: Abdomen soft, non-tender, nondistended. MUSCULOSKELETAL: No cyanosis, or edema. Neuro: Left facial droop, left upper eyelid asymmetry slight speech difficulty. No other focal neurological deficits. BACK: Nontender without obvious deformity. No CVA tenderness. Pt update on day of discharge Follow up for Barton's Palsy, TIA. Patient is doing well. She continues to have left facial droop. No fever, chills. No other focal neurological deficits. Hospital Course Ms. Wu is a pleasant 76-year-old female with a history of breast cancer status post left lumpectomy 2016 who presented to Hospital due to left arm and leg numbness as well as left facial droop on exam. She also had some speech difficulty. Patient was evaluated by neurology and TPA was administered. Patient was observed in the rectal care unit and subsequently transferred to the floor. - Cerebrovascular accident - s/p TPA administration after neurology evaluation. - MRI does not show any evidence of stroke. CT scan does not show any hemorrhage after TPA. - Neurology followed patient. - Discussed with Neurology. We will discharge patient on Plavix, Valtrex and prednisone. - Follow up with Neurology in 2-3 weeks. 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 - Hyperlipidemia - Total cholesterol 241, LDL 134, HDL 71.6. - Lipitor 40 mg daily at bedtime. - Left sided breast cancer status post lumpectomy. Continued outpatient follow- up. - Hypertension - Patient takes Losartan-HCTZ at home. Patient has an appt with her PCP tomorrow. She will monitor her BP. If needed, PCP can adjust BP meds. - Patient is advised not to do any air travel until 05/12/2017. Full code. Ambulation. Pt Condition on Discharge: Good Discharge Disposition: Discharge Home Discharge Time: > 30 minutes Discharge Instructions DIET: Follow Instructions for: As Tolerated, No Restrictions Speech Therapy-Diet Recommends: Regular Activities you can perform: Regular-No Restrictions Follow up Referrals: Neurology - 2 Weeks with Layo Frederick MD PCP Follow-up - 3-5 Days with Alisha Guzman MD New Medications: Clopidogrel (Plavix) 75 Mg Tab 75 MG PO DAILY for Blood Clot Prevention, #30 TAB 0 Refills Prednisone (Prednisone) 20 Mg Tab 20 MG PO TID for Infection, #21 TAB 0 Refills Valacyclovir (Valtrex) 1,000 Mg Tab 1000 MG PO TID for Mgmt Viral Infection, #21 TAB 0 Refills Atorvastatin (Atorvastatin) 40 Mg Tab 40 MG PO HS for Cholesterol Management, #90 TAB 3 Refills Continued Medications: Anastrozole (Arimidex) 1 Mg Tab 1 MG PO DAILY for Breast Cancer, #30 TAB 0 Refills Cholecalciferol (Vitamin D3) 1,000 Unit Chew 1000 UNITS CHEW DAILY for Nutritional Supplement, #1 BOTTLE 0 Refills Losartan-Hydrochlorothiazide (Hyzaar) 50-12.5 Mg Tab 1 TAB PO DAILY for Blood Pressure Management, #30 TAB 0 Refills Mirabegron (Myrbetriq) 50 Mg Tab 50 MG PO DAILY for Urinary Symptom Managemen, #30 TAB 0 Refills Montelukast (Montelukast) 10 Mg Tab 10 MG PO HS for Asthma Management, #30 TAB 0 Refills Multiple Vitamins W/ Minerals (Womens One Daily) 1 Tab Tab 1 TAB PO DAILY Polyethylene Glycol-Propylene Glycol Opth Drp (Systane Opth Drops) 0.4-0.3% Soln 1-2 DROP EACH EYE PRN PRN for DRY EYE, #1 BOTTLE 0 Refills Solifenacin (Vesicare) 10 Mg Tab 10 MG PO DAILY for Urinary Symptom Managemen, #30 TAB 0 Refills Travoprost Opth Drops (Travatan Z Opth Drops) 0.004 % Soln 1 DROP EACH EYE HS for Glaucoma, #1 BOTTLE 0 Refills Zolpidem (Ambien) 10 Mg Tab 10 MG PO HS PRN for INSOMNIA, TAB 0 Refills Discontinued Medications: Aspirin (Aspirin EC) 81 Mg Tabdr 81 MG PO DAILY, TAB 0 Refills Saskia Lopez DO May 07, 2017 8:47 am
== END 2017-05-07 10:59 | disposition home or self-care (01) | DRG 62 ==
LOC: NEPC 14:42 → NEDA 16:34 → N03A 17:35 → N05B 05-05 21:41
PROVIDERS: ADMIT Hospitalist; ATTEND Hospitalist
DX: I63.9 Cerebral infarction, unspecified (principal); I16.1 Hypertensive emergency; I34.1 Nonrheumatic mitral (valve) prolapse; I10 Essential (primary) hypertension; G51.0 Bell's palsy; G47.30 Sleep apnea, unspecified; R47.1 Dysarthria and anarthria; R29.704 NIHSS score 4; E78.5 Hyperlipidemia, unspecified; M19.90 Unspecified osteoarthritis, unspecified site; F41.9 Anxiety disorder, unspecified; Z68.33 Body mass index [BMI] 33.0-33.9, adult; Z85.3 Personal history of malignant neoplasm of breast; Z86.13 Personal history of malaria; Z92.21 Personal history of antineoplastic chemotherapy; Z88.1 Allergy status to other antibiotic agents; Z88.5 Allergy status to narcotic agent; Z98.1 Arthrodesis status; Z92.3 Personal history of irradiation
CPT/HCPCS: 70450; 70496; 70498; 70544; 70553; 80048; 80053; 80061; 82435; 82565; 82947; 83735; 84132; 84295; 84520; 85025; 85610; 85730; 86850; 86900; 86901; 87040; 87641; 87801; 93005; 96365; 96375; A9579; J0360; J2997; J7030; J7050; J7512; Q9967